=== PATIENT | male | born 1945 | race Caucasian/White ===

== ENCOUNTER 2023-10-31 23:39 | Inpatient (IN) | payer OTHER, SELFPAY ==
[2023-10-31 18:20] VITALS: BMI 28.9
[2023-10-31 18:31] VITALS: BP 112/71
--- NOTE | 2023-10-31 20:29 | ED.GENMED ---
History of Present Illness
General
Chief Complaint: Extremity Pain (non-traumatic)
Source: patient and family
Time Seen by Provider: 10/31/23 20:00
Travel History
Have you had any contact with someone who has COVID-19?: No
Do you have any symptoms of coronavirus? Fever > 100 degrees, chills, cough, shortness of breath, sore throat, loss of taste or smell, muscle aches, or headache?: No
History of Present Illness
History of Present Illness:
This patient is a 78-year-old male who just recently returned from [place], over a period of driving for 2 days. He was quite active while he was in [place]. He states that for the last 3 to 4 days, he notes 'claudication' described as pain
initially just in the right leg and now in both legs with walking more than 20 to 30 feet. His symptoms seem to be worse today which prompted his visit here. He denies leg swelling, chest pain, shortness of breath, abdominal pain, nausea,
vomiting, numbness, recent trauma, or other complaints. Patient has no pain at rest. He has a history of peripheral arterial disease and states that the symptoms are similar to prior when he needed a femoropopliteal bypass.
Past History
Past History
ED Past Medical History: Other (A-fib, hypertension, hyperlipidemia, renal cancer, bladder cancer)
ED Past Surgical History: Other (Kidney removal)
Social History
Tobacco: Non-smoker
Drug: None
Personal:
Living: with family
Phy Exam
Physical Exam
Physical Exam:
GENERAL: Alert , in no apparent distress
EYE: pupils equal and reactive
NECK: Supple, no significant adenopathy.
ENT: o/p clr, mmm.
CARDIAC: Regular rate and rhythm .
LUNGS: Clear breath sounds bilaterally, no acute respiratory distress, no wheezes/rales/rhonchi
ABDOMEN: Soft, without focal tenderness, no r/g, no cvat
NEUROLOGICAL: Alert and oriented, no focal neuro deficits
SKIN: Warm and dry, skin intact.
MUSCULOSKELETAL: No edema, well perfused. Full range of motion, no calf tenderness or swelling noted. No pallor or cyanosis. I am able to get a Doppler signal in the left PT and DP area, right PT area, but unable to appreciate in the right DP
area. Cap refill is normal. Sensation intact, motor 5 out of 5.
PSYCH: Normal and appropriate interaction.
Course
Orders/Labs/Results
Orders:
Orders
10/31/23 18:38
US Legs, Right [US Periph Venous LOWER Ext RT] Urgent
Comment:
Reason For Exam: dvt
10/31/23 20:53
Peripheral Arterial US [US Periph Art LOWER Ext w RODY] Urgent
Comment:
Reason For Exam: hx fem pop, now pain
Vital Signs
Initial and Last Documented VS:
Initial Vital Signs
Temp Pulse Resp BP Pulse Ox
97.8 F 55 20 112/71 100
10/31/23 18:31 10/31/23 18:31 10/31/23 18:31 10/31/23 18:31 10/31/23 18:31
Last Documented Vital Signs
Temp Pulse Resp BP Pulse Ox
98.0 F 78 18 120/81 100
11/01/23 07:15 11/01/23 07:15 11/01/23 07:15 11/01/23 07:15 11/01/23 07:15
*Critical Care Note
Total Time (30-74mins, 75-104mins- exclusive of procedures): Not Applicable
Update Note
Update Note:
Patient presents to the Emergency Department with leg pain____
Number and Complexity of Problems Addressed at the Encounter
� Chronic conditions affecting care:
� Acute Exacerbation and/or Progression of Chronic Illness:
� Differential Diagnosis includes: But not limited to DVT, acute arterial occlusion, progressive peripheral arterial disease, etc.
Amount and/or Complexity of Data to be Reviewed and Analyzed
� I performed an independent evaluation of and my interpretation is:
EKG:
CT:
Xrays:
Laboratory Studies: Pending
Other:US no dvt
� Review of other/old records reveals: Patient had a arterial ultrasound bilaterally August 2023 which was generally insignificant for acute disease
� Clinical information was obtained by an independent historian: Family around bedside including
� Prescriptions/Medications Considered but not given:
� Further testing considered but not performed:
Risk of Complications and/or Morbidity or Mortality of Patient Management
� Social determinants of health affecting care:
� Discussion with other providers (PCP, Hospitalists, Consultants, etc):
� Escalation of care including admission/observation vs risk of discharge considered: Although patient is obviously at risk for acute arterial occlusion given his history of A-fib and peripheral arterial disease, he does not have
sxs to suggest acute distal arterial occlusionon exam here. He does not have pain at rest, feet are warm, without pallor or cyanosis, sensation intact, full range of motion, etc. however, increasing claudication symptoms could suggest partial
occlusion. Case discussed with Dr. PARKER from vascular surgery. We then called in the vascular surgery agricultural research technician who performed the ultrasound and does confirm that the bypass is unfortunately occluded. Given patient does not have rest pain,
motor or sensory complaints, etc., it is not emergent tonight but upon his recommendation patient will be admitted to Dr. PARKER for treatment in the morning. Case discussed with the house HEATER TENDER and I forwarded the text of Dr. Parker's request regarding
plan of care for the overnight and morning time. Patient remains pain-free, and asks if he can go home and come back tomorrow. at bedside, aware of importance of being here overnight for prompt evaluation in the morning and is agreeable to
this.
ED Attending Note
-
Portions of this chart may have been created with voice recognition software.� Occasional wrong word or��sound alike� substitutions may have occurred due to the inherent limitations of voice recognition software.
Discharge Plan
Departure
Patient Disposition: Admit
Date of Disposition: 10/31/23
Time of Disposition: 23:12
Admit to doctor: brittany
Presentation/result/management discussed w/ accepting MD/DO: brittany
Condition: Fair
Discharge Problem:
occluded bypass graft
Interventions
Interventions:
*Risk Screen - Suicide Last Done: 10/31/23 18:31
*General Assessment Last Done: 11/01/23 01:07
*Neglect/Abuse Screening Last Done: 10/31/23 18:31
ED- Fall Risk Assessment Last Done: 10/31/23 20:34
*ED COVID-19 Vaccine History Last Done: 10/31/23 20:34
*Nursing Disposition Last Done: 11/01/23 01:07
ED-Skin Assessment Last Done: 10/31/23 20:29
ED-Peripheral Vascular Assessment Last Done: 10/31/23 20:32
ED-Musculoskeletal Assessment Last Done: 10/31/23 20:29
Discharge Date and Time
Discharge Date/Time: 11/01/23 01:08
[2023-11-01] VITALS (9 sets, daily range): BP systolic 105–139; BP diastolic 77–103; BMI 27.6; BMI 28.4
--- NOTE | 2023-11-01 00:24 | HPS.HSE ---
Family Physician
-
Family Physician: Evy Hoover
Chief Complaint
-
'leg pain R>L'
History of Present Illness
78 y/o patient with PMH of Afib, HTN, Hyperlipidemia, renal cancer, bladder cancer, PAD with federal popliteal bypass sx Right Leg, presents to ER with the c/o B/L leg pain Right greater than left. States 'throbbing' pain started initially in Right
leg on Sunday after 2 days of driving back and forth from [place], now noticing pain with both legs with walking 20 feet. His symptoms has gradually worsened and denies any pain at rest at present. Denies any chest pain, Shortness of breath at
present. Denies chills, fever, nausea, vomiting. Patient is on Eliquis for Afib and took his dose for today.
Medical History
Past Medical History
Past Medical History: Reports Arrhythmia, Cancer, HTN and Hypercholesterolemia
Past Surgical History: Reports Other
Additional Past Surgical History:
Femoropopliteal bypass
cardioversion
Social History
Tobacco: Former Smoker
Alcohol: Former
Drug: None
Personal:
Living: With Family
Family History
Family History: Not pertinent
Allergies / Home Medications
Allergies reflects when Allergies were last updated in [employer].
Home Medications with original date entered in [employer]
Allergy/Medication List:
Allergies
Allergy/AdvReac Type Severity Reaction Status Date / Time
No Known Allergies Allergy Verified 10/31/23 18:37
Home Medications
Magnesium/Calcium/Zinc 1 tab PO Q48H 07/10/13
acetaminophen 500 mg tablet 1,000 mg PO Q6H PRN pain 05/01/22
apixaban 5 mg tablet (Eliquis) 5 mg PO BID 05/01/22
ferrous sulfate 325 mg (65 mg iron) tablet 325 mg PO DAILY 05/01/22
glucosamine sulfate 500 mg tablet (Glucosamine) 500 mg PO DAILY 05/01/22
lansoprazole 15 mg capsule,delayed release 15 mg PO DAILY 05/01/22
metoprolol succinate 50 mg tablet,extended release 24 hr 50 mg PO Q48H 05/01/22
rosuvastatin 5 mg tablet 5 mg PO DAILY 05/01/22
tamsulosin 0.4 mg capsule 0.4 mg PO HS 05/01/22
Review of Systems
-
History Source: Patient
A 12 point ROS was completed and negative except as noted: Yes
Constitutional: Reports No Symptoms
EENT: Reports No Symptoms
Respiratory: Reports No Symptoms
Cardiac: Reports No Symptoms
Abdomen/GI: Reports No Symptoms
: Reports No Symptoms
Musculoskeletal: Reports Other ('cold feet ')
Skin: Reports Other (surgical scars )
Neurological: Reports No Symptoms
Endocrine: Reports No Symptoms
Hematologic/Lymphatic: Reports No Symptoms
Psych: Reports No Symptoms
Physical Exam
Vital Signs
Vital Signs
Temp Pulse Resp BP Pulse Ox
97.8 F 55 20 112/71 100
10/31/23 18:31 10/31/23 18:31 10/31/23 18:31 10/31/23 18:31 10/31/23 18:31
Physical Exam
General: Well Developed and Well Nourished
HEENT: NormoCephalic, Moist mucous membranes and Atraumatic
Respiratory: Clear and Non Labored Respirations
Cardiac: S1/S2 and Regular Rhythm
Breast: Deferred by me
GI: Soft, Non Tender, Non Distended and Normal Bowel Sounds
Rectal: Deferred by Provider
Genito-urinary: Deferred by me
Musculoskeletal: No Clubbing, No Cyanosis, No Edema and Other (cap refill wnl, Right DP pulses neg, cold b/l LE, sensation intact, strength 5/5 )
Skin: Other (Right leg surgical scar ); No Rash
Neuro: Awake, Alert, AO x 3 and Nonfocal/grossly intact
Hematologic/Lymphatic: No Lymphadenopathy
Psych: Calm
Laboratory Results
-
Allergies
Allergy/AdvReac Type Severity Reaction Status Date / Time
No Known Allergies Allergy Verified 10/31/23 18:37
Home Medications
Magnesium/Calcium/Zinc 1 tab PO Q48H 07/10/13
acetaminophen 500 mg tablet 1,000 mg PO Q6H PRN pain 05/01/22
apixaban 5 mg tablet (Eliquis) 5 mg PO BID 05/01/22
ferrous sulfate 325 mg (65 mg iron) tablet 325 mg PO DAILY 05/01/22
glucosamine sulfate 500 mg tablet (Glucosamine) 500 mg PO DAILY 05/01/22
lansoprazole 15 mg capsule,delayed release 15 mg PO DAILY 05/01/22
metoprolol succinate 50 mg tablet,extended release 24 hr 50 mg PO Q48H 05/01/22
rosuvastatin 5 mg tablet 5 mg PO DAILY 05/01/22
tamsulosin 0.4 mg capsule 0.4 mg PO HS 05/01/22
aspirin 81 mg chewable tablet 81 mg PO DAILY #60 tabs 01/01/23
Data Reviewed
-
Ultrasound: Report Reviewed by me
Lab Data: Labs Reviewed by me
Impression/Plan
-
78 y/o with b/l LE pain, R>L
# B/L LE Pain Right > Left Likely due to Occluded Femoral Bypass
-will admit under Vascular Surgery Dr. Parker
-NPO after MN
-Gentle hydration with NSS @ 75cc/hr
-Hold Eliquis
-may start Heparin in AM
-continue Tylenol for pain
-labs in AM
# Essential HTN
-continue Metoprolol
-monitor HR BP
# Paroxysmal AFib
-Hold Eliquis at present
-continue metoprolol PO
-Monitor HR and BP
# Hyperlipidemia
-continue Rosuvastatin
# BPH
-continue Flomax
DVT prophylaxis: Eliquis on Hold
Limited DNR.
[2023-11-01] MEDS: NSS 1000 IV ×2 (02:27→18:41)
[2023-11-01 02:37] LABS: Hematocrit 39.2 % (39.0-52.0); Mean Corp Hgb Conc. 35.7 g/dL (33.0-37.0); Mean Corpuscular Hgb 30.5 pg (27.0-31.0); Mean Corpuscular Volume 85.4 fL (80.0-94.0); Mean Platelet Volume 9.4 fL (7.4-10.4); Platelet Count 226 10^3/uL (130-400); Red Blood Cell Count 4.59 10^6/uL (4.70-6.10); Red Cell Dist. Width 14.6 % (11.5-14.5); White Blood Cell Count 8.4 10^3/uL (4.8-10.8)
[2023-11-01 02:58] LABS: Blood Urea Nitrogen 19 mg/dl (9-20); Carbon Dioxide 26 mmol/L (22-30); Chloride 104 mmol/L (98-107); Estimated Creatinine Clearance 44 ml/min; Glucose 107 mg/dl (70-99); Potassium 4.3 mmol/L (3.5-5.1); Sodium 135 mmol/L (135-145); eGFR 56.58
--- NOTE | 2023-11-01 07:40 | CON.VAS ---
Consultation
Consultation Request
Performing Provider: Keith
Reason for Consultation: RLE bypass occluded
Medical History
-
Chief Complaint: RLE discomfort
History of Present Illness:
78-year-old male known to our service for peripheral arterial disease (followed by Dr. Wallis).� History of bilateral lower extremity bypasses completed at [facility] in the past.� From what patient reports, right-sided bypass was
completed with vein conduit.� At some point subsequently he had occluded the bypass and was seen at [facility] where he underwent thrombectomy and subsequently repeated surgery with stenting of the distal bypass into the outflow popliteal
artery.� In addition underwent extensive fasciotomies.� Subsequently had been seen by Dr. Wallis.� Underwent right lower extremity arteriogram with angioplasty of anterior tibial artery twice for salvage of the bypass graft, as well as for toe
ulceration.� Now presents with 4 days of bilateral right worse than left calf claudication type symptoms with 20 to 30 feet of walking.� He notes that the right calf has had symptoms of claudication for a few months, but not this severe it was much
milder prior.� Denies any rest pain.� Denies tissue loss.
On exam/he is awake and alert.� He is in no acute distress.� Breathing is unlabored.� Lower extremity with 2+ femoral pulses palpable bilaterally.� Left lower extremity with warm well-perfused foot.� Easily dopplerable PT signal with phasic audible
signal.� Right lower extremity foot is slightly cool.� Elevation pallor noted as well.� Motor intact though he has some chronic limitation he notes due to arthritis.� I am unable to Doppler signals in his foot.� Calf is soft and nontender.� Chronic
fasciotomy sites and skin grafting sites healed.
I have reviewed all pertinent imaging including duplex that was completed last evening.� I also have reviewed prior angiograms that were completed here.
Pt scheduled for CLAY tomorrow and afib ablation next week with Dr Mcfarlane. I will reach out to cardiology to collaborate.
Past Medical History
Past Medical History: Arrhythmias (afib), Cancer, HTN and Hypercholesterolemia
Past Surgical History: Other (fem-pop bypass ([facility]), CV)
Social History
Tobacco: Former Smoker
Alcohol: Former
Drug: None
Personal:
Living: With Family
Family History
Family History: Reviewed & Not Pertinent
Allergies / Home Medications
Allergy/AdvReac Type Severity Reaction Status Date / Time
No Known Allergies Allergy Verified 10/31/23 18:37
Medication Instructions Recorded Confirmed Type
Magnesium/Calcium/Zinc 1 tab PO Q48H Supplement 07/10/13 01/01/23 History
acetaminophen 500 mg tablet 1,000 mg PO Q6H PRN pain 05/01/22 01/01/23 History
apixaban 5 mg tablet (Eliquis) 5 mg PO BID Blood Clot 05/01/22 11/01/23 History
Prevention/Tx
ferrous sulfate 325 mg (65 mg 325 mg PO DAILY Supplement 05/01/22 11/01/23 History
iron) tablet
glucosamine sulfate 500 mg tablet 500 mg PO DAILY Supplement 05/01/22 01/01/23 History
(Glucosamine)
lansoprazole 15 mg capsule,delayed 15 mg PO DAILY Gastrointestinal 05/01/22 11/01/23 History
release Issue
metoprolol succinate 50 mg 50 mg PO Q48H Heart Failure 05/01/22 11/01/23 History
tablet,extended release 24 hr
rosuvastatin 5 mg tablet 5 mg PO DAILY High Cholesterol 05/01/22 11/01/23 History
tamsulosin 0.4 mg capsule 0.4 mg PO HS Urinary Issue 05/01/22 11/01/23 History
aspirin 81 mg chewable tablet 81 mg PO DAILY Blood Clot 11/01/23 History
Prevention/Tx
Review of Systems
-
History Source: Patient
All other systems: Negative unless noted
Constitutional: Reports No Symptoms
EENT: Reports No Symptoms
Respiratory: Reports No Symptoms
Cardiac: Reports No Symptoms
Vascular: Reports Numbness
Abdomen/GI: Reports No Symptoms
: Reports No Symptoms
Musculoskeletal: Reports Muscle Pain and Muscle Stiffness
Skin: Reports Other (R toes pale, cool)
Neurological: Reports No Symptoms
Endocrine: Reports No Symptoms
Physical Exam
Vital Signs
Temp Pulse Resp BP Pulse Ox
97.6 F 72 18 137/83 97
11/01/23 03:15 11/01/23 03:15 11/01/23 03:15 11/01/23 03:15 11/01/23 03:15
Lab Results
11/01/23 02:19
11/01/23 02:19
Physical Exam
General: No Apparent Distress
HEENT: Normocephalic and Atraumatic
Respiratory: Non Labored Respirations
Cardiac: Irregular Rhythm
GI: Soft, Non Tender and Non Distended
Musculoskeletal: No Clubbing and No Edema
Skin: Other (Right foot cool, toes pale)
Neuro: Awake, Alert and Oriented
Pulses: Bilateral Femoral: +2, Left Dorsalis Pedis: Doppler (absent), Right Dorsalis Pedis: Doppler (absent), Left Posterior Tibial: Doppler and Right Posterior Tibial: Doppler (absent)
Assessment / Plan
-
Plan/ Right lower extremity occluded bypass graft acute/subacute.� Discussed that based on my review of his angiograms, and the need for a couple interventions in the relatively recent past, I cannot guarantee that we can restore patency of this
bypass graft.� He has a very diseased runoff vessels.� Anterior tibial and peroneal arteries are both patent but both significantly diseased.� Anterior tibial artery is his main runoff vessel to the foot but moderate recurrent disease at the
origin.� Peroneal artery is much more diminutive in nature.� The anterior tibial artery does continue onto the dorsalis pedis artery, but there is disease in the proximal foot portion of the artery.� His very distal posterior tibial artery at the
very distal ankle/foot appears to regain patency on his last angiogram but again gives rise to relatively diseased plantar branches.� Not necessarily the most robust runoff vessel.� In addition, he has limited vein conduit should he need a new
bypass.� Therefore, I discussed with him attempting angiogram today, and possible initiation of catheter directed thrombolysis.� Discussed that may not be able to achieve successfully in which case could see if there is a reasonable target for
bypass, but I cautioned him that based on his prior angiograms that may not be the case.� He understands the risk of potential amputation with or without intervention.� I discussed with him and he has no contraindications to catheter directed
thrombolysis (no history of stroke/intracranial bleeds, no recent GI bleeds, no recent bleeds, no recent major surgeries).� Plan right lower extremity arteriogram today.� Gentle hydration discussed with him as well given that he has solitary
kidney.
Data Reviewed
-
Labs: Labs Reviewed by me
[2023-11-01] MEDS: CRESTOR PO (08:00)
--- NOTE | 2023-11-01 08:04 | W.PN.UPDATE ---
Update Note
Progress Note Update
Seen and examined with FEDERICO Zamorano. Full consultation to follow. Briefly, 78-year-old male known to our service for peripheral arterial disease (followed by Dr. Wallis). History of bilateral lower extremity bypasses completed at [facility] in the past. From what patient reports, right-sided bypass was completed with vein conduit. At some point subsequently he had occluded the bypass and was seen at [facility] where he underwent thrombectomy and subsequently repeated
surgery with stenting of the distal bypass into the outflow popliteal artery. In addition underwent extensive fasciotomies. Subsequently had been seen by Dr. Wallis. Underwent right lower extremity arteriogram with angioplasty of anterior tibial
artery twice for salvage of the bypass graft, as well as for toe ulceration. Now presents with 4 days of bilateral right worse than left calf claudication type symptoms with 20 to 30 feet of walking. He notes that the right calf has had symptoms
of claudication for a few months, but not this severe it was much milder prior. Denies any rest pain. Denies tissue loss.
On exam/he is awake and alert. He is in no acute distress. Breathing is unlabored. Lower extremity with 2+ femoral pulses palpable bilaterally. Left lower extremity with warm well-perfused foot. Easily dopplerable PT signal with phasic audible
signal. Right lower extremity foot is slightly cool. Elevation pallor noted as well. Motor intact though he has some chronic limitation he notes due to arthritis. I am unable to Doppler signals in his foot. Calf is soft and nontender. Chronic
fasciotomy sites and skin grafting sites healed.
I have reviewed all pertinent imaging including duplex that was completed last evening. I also have reviewed prior angiograms that were completed here.
Plan/ Right lower extremity occluded bypass graft acute/subacute. Discussed that based on my review of his angiograms, and the need for a couple interventions in the relatively recent past, I cannot guarantee that we can restore patency of this
bypass graft. He has a very diseased runoff vessels. Anterior tibial and peroneal arteries are both patent but both significantly diseased. Anterior tibial artery is his main runoff vessel to the foot but moderate recurrent disease at the origin.
Peroneal artery is much more diminutive in nature. The anterior tibial artery does continue onto the dorsalis pedis artery, but there is disease in the proximal foot portion of the artery. His very distal posterior tibial artery at the very
distal ankle/foot appears to regain patency on his last angiogram but again gives rise to relatively diseased plantar branches. Not necessarily the most robust runoff vessel. In addition, he has limited vein conduit should he need a new bypass.
Therefore, I discussed with him attempting angiogram today, and possible initiation of catheter directed thrombolysis. Discussed that may not be able to achieve successfully in which case could see if there is a reasonable target for bypass, but I
cautioned him that based on his prior angiograms that may not be the case. He understands the risk of potential amputation with or without intervention. I discussed with him and he has no contraindications to catheter directed thrombolysis (no
history of stroke/intracranial bleeds, no recent GI bleeds, no recent bleeds, no recent major surgeries). Plan right lower extremity arteriogram today. Gentle hydration discussed with him as well given that he has solitary kidney.
--- NOTE | 2023-11-01 15:10 | CM ---
Initial assessment completed with patient and . 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 Currently with
occluded fem bypass. For arteriogram, possible bypass and possible amputation. [facility]acy is [facility] in [place] and PCP is Dr. Evy Hoover. Discharge plan of care to be determined based on care required.
[2023-11-01] MEDS: BACTROBAN 2% OINTMENT 1 APPLIC NASAL (15:32)
[2023-11-01] MEDS: NSS IV (15:33)
[2023-11-01] MEDS: PERIDEX 0.12% ORAL RINSE 15 ML PO (15:33)
--- NOTE | 2023-11-01 16:54 | W.SUR.PREOP ---
Pre-Operative Surgical Note
-
I have examined this patient prior to the performance of the scheduled procedure.
The patient's condition is unchanged from the time of the current History and
Physical and the patient is able to undergo the scheduled procedure.
[2023-11-01] MEDS: ANCEF 10 IV (17:05)
--- NOTE | 2023-11-01 17:41 | W.SUR.POST ---
Surgical Immediate Post Op
Note
Pre Op Diagnosis: Occluded RLE bypass
Post Op Diagnosis: same
Procedure Performed: RLE angiogram, initiation of catheter directed thrombolysis
Primary Surgeon: Keith
Anesthesia: local and sedation
Estimated Blood Loss: <2cc
Fluids: see anesthesia flow sheet
Drains/Shunts: none
Specimens/Cultures: none
Doppler/Duplex/Angio (Y/N): Y
Complications: none
Operative Findings: TPA dwelling
[2023-11-01] MEDS: HEPARIN 25000 UNITS/250 ML ART SHEATH (17:45)
[2023-11-01] MEDS: CATHFLO/ACTIVASE 16 ML INF CATH ×2 (17:45→22:02)
[2023-11-01] MEDS: CATHFLO/ACTIVASE 16 MG INF CATH ×2 (17:45→22:02)
--- NOTE | 2023-11-01 18:19 | OR.RPT ---
Operative Report
Operative Report
PROCEDURE DATE: 11/01/2023
Preoperative diagnosis: Acute limb ischemia right lower extremity, [place] 2A
Postoperative diagnosis: Same
Procedure:
1. Duplex assisted left common femoral artery cannulation.
2. Aortogram and pelvic angiogram.
3. Right lower extremity arteriogram with third order vessel catheterization of right peroneal artery via left common femoral artery puncture.
4. Initiation of catheter directed thrombolysis.
5. Supervision interpretation.
Surgeon: Parker
Master Craftsman: None
Complications: None
Anesthesia: Local, sedation
Fluoroscopy:
13.5 min
52 mGy
14.21 Gy.cm2
Indications for procedure:
Acute thrombosis of right lower extremity bypass graft. Symptoms for 4 days prior to admission. Discussed extensively scenarios, outcomes, alternatives. Patient understood all wish to proceed with right lower extremity arteriogram, possible
catheter directed thrombolysis.
Description of procedure:
Patient was identified, brought to the operating room. Placed on the table in the supine position. After the adequate administration of anesthesia, the patient was prepped and draped in the standard surgical fashion. A standard preoperative
timeout was undertaken and everybody was in agreement with the plan.
The left common femoral artery was accessed with a micropuncture kit under direct duplex ultrasound guidance. A 5 Martiniquais sheath was then advanced over a 0.035 inch wire, and a webster's hook catheter was advanced into the abdominal aorta.
Aortogram and pelvic angiogram was obtained. Findings as follows:
Infrarenal aorta: [Patent with no significant stenosis]
Right common iliac artery: [Patent with no significant stenosis]
Right external iliac artery:[Patent with no significant stenosis]
Left common iliac artery:[Patent with no significant stenosis]
Left external iliac artery:[Patent with no significant stenosis]
Using a floppy angled hydrophilic wire, the right common femoral artery was cannulated and the catheter was advanced. Right lower extremity arteriogram was obtained. Right common femoral artery was patent. Profunda was patent, but appeared to
occlude in its more distal course. The origin of the bypass graft could be visualized but there was no flow beyond there. Imaging throughout the right lower extremity otherwise from injection of contrast through the catheter in the right common
femoral artery did not opacify the distal vessels. At this point I cannulated the profunda femoris artery and then exchanged for a Storq wire via a glide catheter (this proved to be slightly challenging due to the somewhat tighter bifurcation of
the aorta). Once I placed the Storq wire, I exchanged for a 6 Martiniquais up and over sheath. I gave the patient 100 units/kg of heparin. Now with the sheath in the right common femoral artery, under roadmap assisted guidance I tried to cannulate the
bypass graft. This proved very challenging because of the patient's constant movement. In addition, the angle from the common femoral into the bypass graft proved challenging. However, finally was able to gain wire access into it and then
advanced my catheter just into the origin. Once I did this I was finally able to torque my wire such that I was able to gain better wire purchase and then advance my catheter and then was able to pass through once I passed the arterial plug. Next,
I advanced a CXI catheter over the wire when I advanced the wire all the way through the bypass graft and through the distal stent. Initially catheter went into a sidebranch. I was able to pull it back and then navigated into the main popliteal
artery below the knee. Angiogram confirmed I was in the true lumen. I could see filling into the anterior tibial and tibial peroneal trunk/peroneal artery. I now exchanged for a Storq wire and then a 5 Martiniquais x 50 cm infusion length [place]
Alanna infusion catheter. I positioned it under fluoroscopy. I then withdrew the wire. Angiogram confirmed good positioning. I then instilled 2 mg of tPA through the catheter to bolus. I then hooked up a tPA infusion of 1 mg/h through the
catheter, and 500 units/h of heparin through the sheath. Sheath and catheter were all secured. Dressings were applied.
The patient tolerated procedure well.
--- NOTE | 2023-11-01 18:31 | CON.INTV ---
Consultation
Consultation Request
Date/Time Consultation Requested: 11-01-23
Date/Time Consultation Performed: 11-01-23
Requesting Provider: Dr Parker
Performing Provider: Dr Champion
Reason for Consultation: RLE thrombolysis
Medical History
-
Chief Complaint: RLE pain
History of Present Illness:
Mr Daniel Morales is a 78/M adm 11-01 with bilateral ODILON pain (R>L) for 4 d.
Known h/o PAD with bilateral ODILON bypass at OSH, then thrombectomy and then repeat surgery in another institution with stenting of distal bypass.
Transferred care to , received balloon angioplasty of R proximal anterior tibial artery stenosis in December 2022.
Seen in consultation by Dr Parker, difficult vascular disease to intervene on but candidate for thrombolysis of RLE occluded bypass graft.
Past Medical History
Past Medical History: Other (see A&P for PMH/PSH)
Social History
Tobacco: Former Smoker
Alcohol: Former
Drug: None
Personal:
Living: With Family
Family History
Family History: Reviewed & Not Pertinent
Allergies / Home Medications
Allergies
Allergy/AdvReac Type Severity Reaction Status Date / Time
No Known Allergies Allergy Verified 10/31/23 18:37
Home Medications
Medication Instructions Recorded Confirmed Last Taken Type
Magnesium/Calcium/Zinc 1 tab PO Q48H Supplement 07/10/13 01/01/23 12/30/22 09:30 History
acetaminophen 500 mg tablet 1,000 mg PO Q6H PRN pain 05/01/22 01/01/23 12/28/22 19:00 History
apixaban 5 mg tablet (Eliquis) 5 mg PO BID Blood Clot 05/01/22 11/01/23 10/31/23 History
Prevention/Tx
ferrous sulfate 325 mg (65 mg 325 mg PO DAILY Supplement 05/01/22 11/01/23 10/31/23 History
iron) tablet
glucosamine sulfate 500 mg tablet 500 mg PO DAILY Supplement 05/01/22 01/01/23 12/31/22 09:30 History
(Glucosamine)
lansoprazole 15 mg capsule,delayed 15 mg PO DAILY Gastrointestinal 05/01/22 11/01/23 10/24/23 History
release Issue
metoprolol succinate 50 mg 50 mg PO Q48H Heart Failure 05/01/22 11/01/23 10/31/23 History
tablet,extended release 24 hr
rosuvastatin 5 mg tablet 5 mg PO DAILY High Cholesterol 05/01/22 11/01/23 10/31/23 History
tamsulosin 0.4 mg capsule 0.4 mg PO HS Urinary Issue 05/01/22 11/01/23 10/31/23 History
aspirin 81 mg chewable tablet 81 mg PO DAILY Blood Clot 11/01/23 Unknown History
Prevention/Tx
Review of Systems
-
History Source: Patient
All other systems: Negative unless noted
Musculoskeletal: Other (RLE pain, improving after thrombolysis)
Vitals / Labs / Diagnostic Testing
Vital Signs
Temp Pulse Resp BP Pulse Ox
97.3 F 85 18 139/93 98
11/01/23 15:10 11/01/23 15:10 11/01/23 15:10 11/01/23 15:10 11/01/23 15:10
Diagnostic Testing:
Physical Exam
-
HEENT: Normocephalic and Moist Mucous Membranes
Cardiovascular: Regular Rhythm, Murmur (n) and Peripheral Edema
Respiratory: Clear and Non-Labored Respirations
GI: Soft, Non Distended and Non Tender
Neurology: Awake, AO x 3 and No Motor Deficits
Skin: Dry
General: Respiratory Distress (n)
Assessment
-
Assessment:
Mr Daniel Morales is a 78/M adm 11-01 with bilateral ODILON pain (R>L) for 4 d. Known h/o PAD with bilateral ODILON bypass at OSH, then thrombectomy and then repeat surgery in another institution with stenting of distal bypass. Transferred care to ,
received balloon angioplasty of R proximal anterior tibial artery stenosis in December 2022. Seen in consultation by Dr Parker, difficult vascular disease to intervene on but candidate for thrombolysis of RLE occluded bypass graft.
Impression:
Acute limb ischemia RLE
S/p angiogram and catheter directed thrombolysis 11-01-23
Conditions PERL PROGRAMMER:
PAD: RLE bypass 2020
AFib on apixabn
Prostate cancer, TURP, XRT 2012
R ureteral/renal carcinoma s/p resection
GERD
HTN
HLD
Former Smoker
Plan:
Postoperative surgical intensive care unit monitoring
Supplemental oxygen as needed
Incentive spirometry
Aspiration precautions
Neuro and vascular checks per protocol
Vascular surgery following-correspondence and operative notes reviewed
DVT prophylaxis
Early nutrition
Early mobilization
Critical care time: 35 min
Diagnostic tests:
RLE doppler 10-31-23: no DVT
[2023-11-01] MEDS: NSS 1000 INF CATH (18:37)
--- NOTE | 2023-11-01 18:45 | PTCARENOTE ---
Rec'd pt from laboratory development technician. Pt rec'd A&Ox3. Pleasant. Denies any pain at present. Strict bedrest w/ bilateral legs straight per MD order. Afib on monitor. On R/A...sats 100%. Wallis draining yellow urine. Left groin w/ arterial sheath....heparin,
tpa, and IVF's infusing...line transduced. Left DP and PT by doppler. Unable to obtain (R) DP and PT by doppler....MD aware. 20P LAC w/ NSS infusing @ 80ml/hr. Clear liquid diet ordered. VS documented. Reviewed plan of care w/ pt and limb
restrictions. Call cooper provided. Will continue to monitor closely.
[2023-11-01 19:35] LABS: Hepatitis C Antibody Negative (Negative)
--- NOTE | 2023-11-01 20:36 | PTCARENOTE ---
received patient from previous shift. alert and orientated x3. pt requesting bilateral ankle restraints on for the night as a reminder to keep his legs straight. order received and restraints in place. neurovascular checks done with dayshift nurse.
pt on room air. a-fib on the monitor. a-line zeroed and transduced. blood specimen sent to the lab. tolerating a clear liquid diet. reardon in place, draining clear yellow urine. tpa and heparin infusing through left leg as ordered. HOB remains flat.
[2023-11-01 20:54] LABS: Hematocrit 39.5 % (39.0-52.0); Hemoglobin 13.9 g/dL (13.0-18.0); Platelet Count 204 10^3/uL (130-400)
[2023-11-01 21:05] LABS: INR 1.31; PT 16.3 Sec (11.4-14.6)
[2023-11-01 21:06] LABS: Fibrinogen 313 MG/DL (199-459)
[2023-11-01 21:22] LABS: Blood Urea Nitrogen 16 mg/dl (9-20); Calcium 8.5 mg/dl (8.4-10.2); Carbon Dioxide 18 mmol/L (22-30); Estimated Creatinine Clearance 58 ml/min; Glucose 136 mg/dl (70-99); eGFR > 60.00
[2023-11-01 21:29] LABS: APTT > 200 Sec (23.4-35.0)
[2023-11-01] MEDS: FLOMAX 0.400000000000000022 MG PO (21:46)
[2023-11-01 22:00] LABS: Chloride 104 mmol/L (98-107); Sodium 134 mmol/L (135-145)
[2023-11-01] MEDS: TYLENOL 650 MG PO (23:24)
[2023-11-01] MEDS: NORCO 5/325 1 TABLET PO (23:36)
[2023-11-01] MEDS: ANCEF 5 IV (23:36)
--- NOTE | 2023-11-01 23:46 | PTCARENOTE ---
pt reassessed, having pain in his right foot. oxy ordered but pt refused said that stuff makes him 'squirrely' pt wanted Vicodin instead. RESEARCH PROGRAM INTERN ordered and given. pt said he immediately feels better. left foot remains cool to the touch, DP's with
doppler. unable to find PT's yet.
[2023-11-01 23:54] LABS: Hematocrit 36.8 % (39.0-52.0); Hemoglobin 13.1 g/dL (13.0-18.0); Platelet Count 189 10^3/uL (130-400)
[2023-11-01 23:59] LABS: PT 16.3 Sec (11.4-14.6)
[2023-11-02] VITALS (12 sets, daily range): BP systolic 99–164; BP diastolic 63–143; BMI 29.3
[2023-11-02] LABS: Fibrinogen 333 MG/DL (199-459)
[2023-11-02 00:20] LABS: APTT > 200 Sec (23.4-35.0)
[2023-11-02] MEDS: MORPHINE SULFATE 4 MG IV (01:43)
[2023-11-02] MEDS: CATHFLO/ACTIVASE 16 ML INF CATH ×2 (01:43→09:09)
[2023-11-02] MEDS: CATHFLO/ACTIVASE 16 MG INF CATH ×2 (01:43→09:09)
--- NOTE | 2023-11-02 01:55 | PTCARENOTE ---
lost doppler signals in right foot between 12am-1am. Dr.Eisenberg gamboa texted and updated increase tpa to 1.5mg/6ml and morphine given for pain.
[2023-11-02] MEDS: DILAUDID 1 MG IV ×4 (02:48→22:51)
[2023-11-02 04:25] LABS: Hematocrit 38.4 % (39.0-52.0); Hemoglobin 13.1 g/dL (13.0-18.0); Mean Corp Hgb Conc. 34.1 g/dL (33.0-37.0); Mean Corpuscular Hgb 30.2 pg (27.0-31.0); Mean Corpuscular Volume 88.5 fL (80.0-94.0); Mean Platelet Volume 9.5 fL (7.4-10.4); Platelet Count 145 10^3/uL (130-400); Red Blood Cell Count 4.34 10^6/uL (4.70-6.10); Red Cell Dist. Width 14.4 % (11.5-14.5); White Blood Cell Count 7.9 10^3/uL (4.8-10.8)
[2023-11-02 04:36] LABS: INR 1.64; PT 19.6 Sec (11.4-14.6)
[2023-11-02 04:37] LABS: Fibrinogen 179 MG/DL (199-459)
[2023-11-02 04:53] LABS: Blood Urea Nitrogen 16 mg/dl (9-20); Calcium 8.2 mg/dl (8.4-10.2); Carbon Dioxide 20 mmol/L (22-30); Chloride 105 mmol/L (98-107); Estimated Creatinine Clearance 58 ml/min; Glucose 102 mg/dl (70-99); Potassium 4.1 mmol/L (3.5-5.1); Sodium 133 mmol/L (135-145); eGFR > 60.00
[2023-11-02 04:54] LABS: APTT > 200 Sec (23.4-35.0)
[2023-11-02] MEDS: NSS 1000 IV ×2 (06:06→17:47)
--- NOTE | 2023-11-02 07:23 | PTCARENOTE ---
Clarified with previous RN, [address] Jacobson increase tPa to 1.5mg/hr for 2 hours then return to 1 mg/hr
--- NOTE | 2023-11-02 07:28 | PTCARENOTE ---
tPa rate adjusted 0.5 mg/hr with NS @ 23 mg/hr, per Anushka Byrnes and Maggie BROWN
[2023-11-02] MEDS: ANCEF 5 IV (07:59)
[2023-11-02] MEDS: TOPROL XL 50 MG PO (08:00)
[2023-11-02] MEDS: LOW STRENGTH ASPIRIN 81 MG PO (08:01)
[2023-11-02] MEDS: PROTONIX 20 MG PO (08:01)
[2023-11-02] MEDS: CRESTOR 5 MG PO (08:01)
--- NOTE | 2023-11-02 08:42 | PTCARENOTE ---
PT received in bed AAOx3, pleasant and cooperative, PT remains flat as per order, B/L LE restrained as reminder to bed, pulses +Doppler, right LE cool, greater than >2 sec cap refill, +Doppler, room air 94%, abdomen soft NT +BS, Wallis draining clear
yellow urine, left AC INT flushed patent, NSS @ 80 ml/hr, left femoral sheath in place dressing C/D/I, tPa @ 2 mg/hr, NSS @ 23 ml/hr, heparin @ 500 units /hr, emotional support given to PT, denies any needs at this time, awaiting call to return to
Vascular lab
--- NOTE | 2023-11-02 08:45 | W.PN.VS ---
Today's Communication / Plan
-
Seen and assessed with Dr Wallis
Assessment/Plan
-
POD 1 RLE angiogram, initiation of catheter directed thrombolysis
Plan:
-Cont TPA
-Return to OR today for lysis catheter check
-NPO
Subjective Data
-
Date of Service: November 02, 2023
Pt seen at bedside this am. Pt had some lower leg 'throbbing' overnight that has resovled. TPA was increased to 1.5 for two hours then changed back to 1mg. This am his Fibrinogen dropped so we changed TPA rate to 0.5mg now.
Objective Data
-
Vital Signs
Temp Pulse Resp BP Pulse Ox
98.1 F 102 11 132/75 96
11/02/23 04:01 11/02/23 08:30 11/02/23 08:15 11/02/23 08:08 11/01/23 21:45
Intake and Output
11/01/23 11/02/23 11/03/23
06:59 06:59 06:59
Intake Total 1760 / 1 940 / 940
Output Total 325 / 325 650 / 650
Balance -325 / -325 1111 / 1941 940 / 940
Intake:
IV fluids (Total) 1760 / 2590 940 / 940
HEPARIN 98844 UNITS/250 ML 25, 65 / 70 10 / 10
000 units In 250 ml @ 500 UNITS
/HR 5 mls/hr ART SHEATH .Q24H
AZALEA Rx#:[id number]
Nss 1,000 ml @ 23 mls/hr INF 598 / 621 46 / 46
CATH .Q24H AZALEA Rx#:[id number]
Nss 1,000 ml @ 80 mls/hr IV . 1040 / 1840 880 / 880
[id number] AZALEA Rx#:[id number]
TPA via sheath 58 / 60 4 / 4
Output:
Urine, Wallis 650 / 650
Urine, Voided 325 / 325
Lab Results
11/02/23 04:07
Calcium 8.2 mg/dl (8.4-10.2) L 11/02/23 04:07
Physical Exam
-
AAOx3
No tachypnea
No tachycardia
Abd soft
RLE toes slightly dusky, denies pain, sensory intact- fleating AT doppler
LLE warm, pink, +doppler PT
--- NOTE | 2023-11-02 08:47 | W.PN.INTV ---
Today's Communication / Plan
Recommendations
tPA
Pain mgmt
OR
Assessment
-
Assessment:
Mr Daniel Morales is a 78/M adm 11-01 with bilateral ODILON pain (R>L) for 4 d. Known h/o PAD with bilateral ODILON bypass at OSH, then thrombectomy and then repeat surgery in another institution with stenting of distal bypass. Transferred care to ,
received balloon angioplasty of R proximal anterior tibial artery stenosis in December 2022. Seen in consultation by Dr Parker, difficult vascular disease to intervene on but candidate for thrombolysis of RLE occluded bypass graft.
Impression:
Acute limb ischemia RLE
S/p angiogram and catheter directed thrombolysis 11-01-23
Conditions OPERATIONS SUPERVISOR:
PAD: RLE bypass 2020
AFib on apixabn
Prostate cancer, TURP, XRT 2012
R ureteral/renal carcinoma s/p resection
GERD
HTN
HLD
Former Smoker
Plan:
Postoperative surgical intensive care unit monitoring
Supplemental oxygen as needed
Incentive spirometry
Aspiration precautions
Neuro and vascular checks per protocol
Vascular surgery following-correspondence and operative notes reviewed
Continue tPA infusion
To return to the OR today for lysis catheter check
Pain mgmt
Reports h/o suicidal thoughts with use of oxycodone
Hydromorphine IV per pain scale
DVT prophylaxis: currently on tPA
Early nutrition
Early mobilization
Critical care time: 35 min
Diagnostic tests:
RLE doppler 10-31-23: no DVT
Subjective Dataa
Subjective Data
Date of Service:
Date of Service: November 02, 2023
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
Subjective:
Events noted, required increase of tPA infusion due to ongoing right lower extremity pain
Due to return to the OR today
Review of Systems
General: Fever (n), Sweats (n), Chills (n) and Satisfactory Appetite (n)
HEENT: Dysphagia
Cardiopulmonary: Dyspnea (n), Cough (n), Chest Pain and Lower Extremity Pain (R)
GI: Abdominal Pain (n), Nausea (n) and Vomiting (n)
Neuro: Weakness (n)
Objective Data
Data Reviewed
Vital Signs / I&O / Oxygen:
Vital Signs
Temp Pulse Resp BP Pulse Ox
98.1 F 102 11 132/75 96
11/02/23 04:01 11/02/23 08:30 11/02/23 08:15 11/02/23 08:08 11/01/23 21:45
Intake and Output
11/01/23 11/02/23 11/03/23
06:59 06:59 06:59
Intake Total 1761 / 2591 940 / 940
Output Total 325 / 325 650 / 650
Balance -325 / -325 1111 / 1941 940 / 940
SaO2 96
Physical Exam
General: Respiratory Distress (n)
HEENT: Normocephalic and Moist Mucous Membranes
Cardiovascular: Regular Rhythm, Murmur (n) and Peripheral Edema (n)
Respiratory: Clear, Non-Labored Respirations and Stridor (n)
GI: Soft, Non Distended and Non Tender
Neurology: Awake, AO x 3 and No Motor Deficits
Skin: Dry
Labs/Micro/Reports
Lab Data
11/02/23 04:07
Laboratory Results
11/01/23 11/01/23 11/02/23
20:48 23:43 04:07
PT 16.3 H 16.3 H 19.6 H
INR 1.31 1.30 1.64
APTT > 200 H* > 200 H* > 200 H*
[2023-11-02] MEDS: CATHFLO/ACTIVASE INF CATH ×2 (09:12)
[2023-11-02 10:35] LABS: Hemoglobin 12.9 g/dL (13.0-18.0); Platelet Count 154 10^3/uL (130-400)
--- NOTE | 2023-11-02 11:05 | PTCARENOTE ---
report given to Zora TA in Vascular lab, PT resting comfortably at this time, waiting for call from vascular lab
[2023-11-02 11:10] LABS: INR 1.43; PT 17.2 Sec (11.4-14.6)
[2023-11-02 11:11] LABS: Fibrinogen 170 MG/DL (199-459)
[2023-11-02] MEDS: DILAUDID 0.5 MG IV ×2 (12:14→16:42)
[2023-11-02 14:33] LABS: Hematocrit 38.1 % (39.0-52.0); Hemoglobin 12.7 g/dL (13.0-18.0); Mean Corp Hgb Conc. 33.3 g/dL (33.0-37.0); Mean Corpuscular Hgb 29.9 pg (27.0-31.0); Mean Corpuscular Volume 89.6 fL (80.0-94.0); Mean Platelet Volume 9.6 fL (7.4-10.4); Platelet Count 145 10^3/uL (130-400); Red Blood Cell Count 4.25 10^6/uL (4.70-6.10); Red Cell Dist. Width 14.6 % (11.5-14.5); White Blood Cell Count 7.8 10^3/uL (4.8-10.8)
[2023-11-02 14:44] LABS: INR 1.57; PT 18.6 Sec (11.4-14.6)
[2023-11-02] MEDS: DILAUDID 4 MG PO ×2 (14:54→21:17)
[2023-11-02 14:57] LABS: APTT > 200.0 Sec (23.4-35.0)
--- NOTE | 2023-11-02 15:07 | CM ---
CM following re: discharge planning.
Discussed in rounds, reviewed pt's chart. POD 1 RLE angiogram, initiation of catheter directed thrombolysis, return to OR today for lysis catheter check, remains NPO.
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
D/C plan: home with anticipated no needs. family to transport at discharge.
CM will follow with discharge plan updates as hospitalization progresses
[2023-11-02 15:13] LABS: Blood Urea Nitrogen 14 mg/dl (9-20); Carbon Dioxide 23 mmol/L (22-30); Chloride 103 mmol/L (98-107); Estimated Creatinine Clearance 53 ml/min; Glucose 109 mg/dl (70-99); Potassium 4.6 mmol/L (3.5-5.1); Sodium 133 mmol/L (135-145); eGFR > 60.00
--- NOTE | 2023-11-02 15:13 | PTCARENOTE ---
PT returns from vascular lab, Arterial and venous sheaths removed, internal closure device, 2x2 C/D/I, PT drowsy but arousable, understand s that he must lay flat for 2 hours and bedrest for 6 hours, samantha mccormack applied as ordered
--- NOTE | 2023-11-02 15:17 | OR.RPT ---
Operative Report
Operative Report
Date of Operation: November 02, 2023
Pre Op Diagnosis: Acute limb ischemia with thrombosed right lower extremity bypass, status post initiation of arterial thrombolysis 11/01/2023
Post Op Diagnosis: Acute limb ischemia with thrombosed right lower extremity bypass, status post initiation of arterial thrombolysis 11/01/2023
Procedure:
1.) Right lower extremity arteriogram, lysis check
2.) Placement of Viabahn stent grafts into proximal right lower extremity bypass for residual thrombus exclusion (overlapping 6 mm x 15 cm Viabahn; 6 mm x 5 cm Viabahn)
3.) Penumbra suction thrombectomy of residual thrombus in the proximal portion of the right lower extremity bypass
4.) ProGlide closure device left common femoral artery access
Surgeon: Rodney Wallis III, MD
Design Checker: Ifeanyi Paz MD PGY-1
Anesthesia: Sedation with local
Fluoroscopy:
16.9 min
329 mGy
40.31 Gy.cm2
Complications: None
Estimated Blood Loss: 10 cc
History and Indications for Procedure: 78-year-old male with thrombosed right lower extremity bypass status post initiation of arterial thrombolysis on 11/01/2023. He was brought back to the operating room for a lysis check.
Procedure in Detail: Daniel Morales was correctly identified and placed supine on the operating table. After positioning on the operating room table the tPA infusion and heparin infusion were disconnected from the catheter and sheath,
respectively. After adequate induction of anesthesia the left groin along with the existing sheath and catheters were prepped and draped in the usual sterile fashion. A timeout was performed with the nursing and anesthesia staff confirming the
patient's identity as well as the nature and laterality of the procedure.
Through the lysis catheter a diagnostic right lower extremity arteriogram was then performed which demonstrated the following:
The bypass was patent. Residual thrombus was identified in the proximal aspect of the bypass graft leading to areas of stenosis. The proximal anastomosis was widely patent. The right common femoral artery was patent. There was significant
disease distally within the profunda femoral artery with distal branch occlusive disease identified. The mid and distal portions of the bypass graft were widely patent. The stent in the distal portion of the bypass was widely patent. The [place]
popliteal artery runoff was patent with no stenosis identified. Tibial outflow was via the anterior tibial artery and peroneal artery. The posterior tibial artery was occluded.
ENDOVASCULAR INTERVENTION:
Systemic heparin was administered. The lysis catheter was removed over a Storq wire. Exchanged out for a 7 Fr 45 cm sheath over a Storq wire. Exchanged out for a 0.018 wire. Overlapping Viabahn stent grafts were placed in the proximal aspect of
the bypass graft to exclude the residual thrombus. This was done under roadmap guidance. The initial stent was a 6 mm x 15 cm Viabahn. A 6 mm x 5 cm Viabahn was slightly overlapped with this and extended to the proximal portion of the bypass.
Each stent was deployed individually in the desired location. The stents were profiled with a 6 mm angioplasty balloon. Subsequent arteriogram demonstrated a significantly improved result but there was residual focal luminal thrombus in the
proximal aspect of the stented portion of the bypass. No other filling defects were identified. I then quickly exchanged out for a 0.014 wire. The 7 Swiss Penumbra catheter was prepped on the table. The catheter was advanced into the desired
location under roadmap guidance. Suction thrombectomy with the Penumbra catheter was performed on the focal area of thrombus in the proximal bypass. Subsequent arteriogram demonstrated an excellent technical result with no residual thrombus or
filling defects identified in the treated area.
COMPLETION ARTERIOGRAM:
Excellent technical result. Brisk flow through the right lower extremity bypass which was widely patent and no evidence of residual filling defects or stenoses. Stents widely patent throughout. [place] popliteal artery patent. Tibial outflow was
identified through the anterior tibial and peroneal arteries. Flow was identified into the foot through the anterior tibial artery.
The sheath tip was pulled back into the left external iliac artery. The wire was exchanged out for a Storq wire. The sheath was removed and a Pro-glide closure device was advanced over the wire. The closure device was deployed and removed. The
knots were secured and the wire removed. Hemostasis was achieved. Sterile dressing was applied.
The patient tolerated the procedure well and was taken to the recovery area in stable condition.
Attestation: I was present and responsible for the entire procedure.
Signed:
Rodney Wallis III, MD
[facility] Vascular Surgery
[phone] (cell)
[2023-11-02] MEDS: HEPARIN 25000 UNITS/250 ML IV (15:52)
--- NOTE | 2023-11-02 17:21 | PTCARENOTE ---
Assessment remains unchanged, samantha hugger remains on, pulses + Doppler DP and PT, PT now allowed to sit up in bed, Heparin continues @ 1300 units /hr
--- NOTE | 2023-11-02 18:26 | PTCARENOTE ---
Left groin dressing saturated with blood, reinforced dressing and applied 5 mins of pressure, applied new Tegaderm, no signs of a hematoma noted,area soft no swelling noted, notified Anushka BROWN, orders received to draw a stat PTT, if >200
notify Vascular surgery mechatronics technician, lab sent awaiting results, also notified DR Champion regarding pain medications, received verbal order for Dilaudid 1 mg IV Q4
[2023-11-02 18:40] LABS: APTT > 200 Sec (23.4-35.0)
[2023-11-02 20:47] LABS: APTT 71.7 Sec (23.4-35.0)
[2023-11-02] MEDS: FLOMAX 0.400000000000000022 MG PO (21:17)
--- NOTE | 2023-11-02 22:12 | PTCARENOTE ---
received from previous shift. alert and orientated x3 pleasant, just wants to go to sleep. pain medication given for 8/10 right foot pain. doppler pulses done with previous shift. Nicko mccormack on right lower leg. remains on room air. spoke with
vascular doc Eliezer after PTT resulted back, resumed at 1100units as ordered.
[2023-11-03] VITALS (9 sets, daily range): BP systolic 102–123; BP diastolic 79–93; BMI 29.6
[2023-11-03] MEDS: TUMS 1 TABLET PO (01:14)
[2023-11-03 03:52] LABS: Hematocrit 33.5 % (39.0-52.0); Hemoglobin 11.8 g/dL (13.0-18.0); Mean Corp Hgb Conc. 35.2 g/dL (33.0-37.0); Mean Corpuscular Hgb 30.9 pg (27.0-31.0); Mean Corpuscular Volume 87.7 fL (80.0-94.0); Mean Platelet Volume 9.7 fL (7.4-10.4); Platelet Count 118 10^3/uL (130-400); Red Blood Cell Count 3.82 10^6/uL (4.70-6.10); Red Cell Dist. Width 14.5 % (11.5-14.5); White Blood Cell Count 7.7 10^3/uL (4.8-10.8)
[2023-11-03 04:10] LABS: INR 1.27; PT 15.8 Sec (11.4-14.6)
[2023-11-03 04:12] LABS: APTT 117.7 Sec (23.4-35.0)
[2023-11-03 04:17] LABS: Blood Urea Nitrogen 15 mg/dl (9-20); Calcium 7.8 mg/dl (8.4-10.2); Carbon Dioxide 24 mmol/L (22-30); Chloride 106 mmol/L (98-107); Estimated Creatinine Clearance 58 ml/min; Glucose 112 mg/dl (70-99); Potassium 4.6 mmol/L (3.5-5.1); Sodium 132 mmol/L (135-145); eGFR > 60.00
[2023-11-03] MEDS: DILAUDID 4 MG PO (04:56)
--- NOTE | 2023-11-03 07:30 | W.[place]-PDMP ---
[place]-PDMP
-
Checked the [place]- Prescription Drug Monitoring Program website, no red flags identified; safe to proceed with prescription.
--- NOTE | 2023-11-03 07:37 | W.PN.VS ---
Addendum entered and electronically signed by Delfina Lopez MD 11/03/23 09:29:
Complaining of some residual foot pain but improving. Dismayed his breakfast is not here yet.
NAD
Foot warm, +biphasic PT and DP signals
Access site c/d/i
Ok to d/c home today after urinates
Transitioned to Eliquis
Original Note:
Today's Communication / Plan
-
Discussed with Dr Ivan
Assessment/Plan
-
POD 2 RLE angiogram, initiation of catheter directed thrombolysis
POD 1 RLE lysis catheter removal, penumbra, stents placed in bypass
Plan:
-Diet
-OOB/ambulate
-DC heparin, restart home Eliquis
-Take tylenol for pain control
-DC reardon
-likely DC later today if voids and ambulates without issue
Subjective Data
-
Date of Service: November 03, 2023
Pt seen at bedside this am. Pt states his foot is a bit uncomfortable but feels to be his baseline discomfort. No events overnight. Heparin infusing
Objective Data
-
Vital Signs
Temp Pulse Resp BP Pulse Ox
98.1 F 79 13 121/83 95
11/03/23 07:25 11/03/23 06:00 11/03/23 06:00 11/03/23 06:00 11/02/23 21:41
Intake and Output
11/02/23 11/03/23 11/04/23
06:59 06:59 06:59
Intake Total 176 / 2591 2645 / 2645
Output Total 650 / 650 1700 / 1700
Balance 1111 / 1941 945 / 945
Intake:
Oral fluids 120 / 120
IV fluids (Total) 176 / 2591 2525 / 2525
HEPARIN 68909 UNITS/250 ML 25, 65 / 70 25 / 25
000 units In 250 ml @ 500 UNITS
/HR 5 mls/hr ART SHEATH .Q24H
AZALEA Rx#:[id number]
Heparin 135 / 135
Nss 1,000 ml @ 23 mls/hr INF 598 / 621 115 / 115
CATH .Q24H AZALEA Rx#:[id number]
Nss 1,000 ml @ 80 mls/hr IV . 1040 / 1840 2240 / 2240
[id number] AAZLEA Rx#:[id number]
TPA via sheath 58 / 60 10 10
Output:
Urine, Reardon 650 / 650 1050 / 1050
Urine, Voided 650 / 650
Lab Results
11/03/23 03:45
11/03/23 03:45
Calcium 7.8 mg/dl (8.4-10.2) L 11/03/23 03:45
Physical Exam
-
AAOx3
No tachypnea
No tachycardia
Abd soft
Groin site c/d/i, no hematoma or drainage noted
R foot warm, pink. Robust AT doppler signal
LLE warm, pink, +doppler PT
--- NOTE | 2023-11-03 07:46 | W.DS.TRANS ---
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
-
Discharge Instructions:
Sleep Apnea Risk High
Discharge Diagnosis/Procedures Placement of Viabahn stent grafts into proximal
right lower extremity bypass for residual
thrombus exclusion (overlapping 6 mm x 15 cm
Viabahn; 6 mm x 5 cm Viabahn)
Penumbra suction thrombectomy of residual
thrombus in the proximal portion of the right
lower extremity bypass
ProGlide closure device left common femoral
artery access
Diet As tolerated
Activity No strenuous activity
Driving Restrictions No driving for 24 hours
Bathing Restrictions OK to Shower
Instructions:
Stand-Alone Forms: DC Instr - Vascular OR
Changes to Home Medications: Yes
Discharge Medications:
DC Medications w/original date entered in [employer]
Magnesium/Calcium/Zinc 1 tab PO Q48H Supplement 07/10/13
acetaminophen 500 mg tablet 1,000 mg PO Q6H PRN pain 05/01/22
apixaban 5 mg tablet (Eliquis) 5 mg PO BID Blood Clot Prevention/Tx 05/01/22
ferrous sulfate 325 mg (65 mg iron) tablet 325 mg PO DAILY Supplement 05/01/22
glucosamine sulfate 500 mg tablet (Glucosamine) 500 mg PO DAILY Supplement 05/01/22
lansoprazole 15 mg capsule,delayed release 15 mg PO DAILY Gastrointestinal Issue 05/01/22
metoprolol succinate 50 mg tablet,extended release 24 hr 50 mg PO Q48H Heart Failure 05/01/22
rosuvastatin 5 mg tablet 5 mg PO DAILY High Cholesterol 05/01/22
tamsulosin 0.4 mg capsule 0.4 mg PO HS Urinary Issue 05/01/22
aspirin 81 mg chewable tablet 81 mg PO DAILY Blood Clot Prevention/Tx 11/01/23
hydromorphone 4 mg tablet 4 mg PO Q4HPRN PRN SEVERE PAIN #7 tabs 11/03/23
Home Medication Changes
Added: hydromorphone for pain control
Pending Results: No
--- NOTE | 2023-11-03 08:31 | W.PN.INTV ---
Today's Communication / Plan
Recommendations
Dispo
Assessment
-
Assessment:
Mr Daniel Morales is a 78/M adm 11-01 with bilateral ODILON pain (R>L) for 4 d. Known h/o PAD with bilateral ODILON bypass at OSH, then thrombectomy and then repeat surgery in another institution with stenting of distal bypass. Transferred care to ,
received balloon angioplasty of R proximal anterior tibial artery stenosis in December 2022. Seen in consultation by Dr Parker, difficult vascular disease to intervene on but candidate for thrombolysis of RLE occluded bypass graft.
Impression:
Acute limb ischemia RLE
S/p angiogram and catheter directed thrombolysis 11-01-23
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
PAD: RLE bypass 2020
AFib on apixabn
Prostate cancer, TURP, XRT 2012
R ureteral/renal carcinoma s/p resection
GERD
HTN
HLD
Former Smoker
Plan:
Postoperative surgical intensive care unit monitoring completed
Supplemental oxygen as needed
Incentive spirometry
Aspiration precautions
Neuro and vascular checks per protocol
Vascular surgery following-correspondence and operative notes reviewed
S/p tPA infusion
Returned to the OR 11-02 for lysis catheter check
Pain mgmt
Reports h/o suicidal thoughts with use of oxycodone
Hydromorphine IV per pain scale
DVT prophylaxis: currently on tPA
Early nutrition
Early mobilization
Disposition today
Reconsult prn
Diagnostic tests:
RLE doppler 10-31-23: no DVT
Subjective Dataa
Subjective Data
Date of Service:
Date of Service: November 03, 2023
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
Subjective:
No major events reported
Foot pain improving
Review of Systems
General: Fever (n), Sweats (n), Chills (n) and Satisfactory Appetite
Cardiopulmonary: Dyspnea (n), Cough (n) and Edema (n)
GI: Abdominal Pain (n), Nausea (n) and Vomiting (n)
Neuro: Weakness (n)
Objective Data
Data Reviewed
Vital Signs / I&O / Oxygen:
Vital Signs
Temp Pulse Resp BP Pulse Ox
98.1 F 79 13 121/83 95
11/03/23 07:25 11/03/23 06:00 11/03/23 06:00 11/03/23 06:00 11/02/23 21:41
Intake and Output
11/02/23 11/03/23 11/04/23
06:59 06:59 06:59
Intake Total 1761 / 2591 2645 / 2645
Output Total 650 / 650 1700 / 1700
Balance 1111 / 1941 945 / 945
SaO2 95
Physical Exam
General: Respiratory Distress (n)
HEENT: Normocephalic and Moist Mucous Membranes
Cardiovascular: Regular Rhythm, Murmur (n) and Peripheral Edema (n)
Respiratory: Clear, Non-Labored Respirations and Stridor (n)
GI: Soft, Non Distended and Non Tender
Neurology: Awake, AO x 3 and No Motor Deficits
Skin: Dry
Labs/Micro/Reports
Lab Data
11/03/23 03:45
11/03/23 03:45
Laboratory Results
11/02/23 11/02/23 11/02/23
10:21 14:27 17:30
PT 17.2 H 18.6 H Cancelled
INR 1.43 1.57 Cancelled
APTT 52.0 H > 200.0 H* Cancelled
11/02/23 11/02/23 11/02/23
18:03 20:30 23:30
PT Cancelled
INR Cancelled
APTT > 200 H* 71.7 H Cancelled
11/03/23 11/03/23
03:45 03:45
PT 15.8 H
INR 1.27
APTT Cancelled 117.7 H
[2023-11-03] MEDS: PROTONIX 20 MG PO (08:55)
[2023-11-03] MEDS: CRESTOR 5 MG PO (08:55)
[2023-11-03] MEDS: ELIQUIS 5 MG PO (08:55)
[2023-11-03] MEDS: FEOSOL 325 MG PO (08:55)
[2023-11-03] MEDS: LOW STRENGTH ASPIRIN 81 MG PO (08:55)
--- NOTE | 2023-11-03 09:16 | PTCARENOTE ---
PT received in bed, Maggie BROWN at bedside, orders obtained to remove reardon, OOB and D/C Heparin drip, drip stopped and left AC INT flushed, catheter removed, 450ml clear yellow urine, assisted x2 OOB to chair, NSR on monitor, no edema, +Doppler
pulses, DP/PT B/L LE, room air 93%, shallow clear BS, occasional cough, abdomen soft NT +BS, waiting for PT to void, Dr Lopez spoke with PT at bedside, PT to be D/C home after PT voids
[2023-11-03] MEDS: TYLENOL 650 MG PO (09:23)
--- NOTE | 2023-11-05 07:05 | W.DS.TRANS ---
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
-
Discharge Instructions:
Sleep Apnea Risk High
Discharge Diagnosis/Procedures Placement of Viabahn stent grafts into proximal
right lower extremity bypass for residual
thrombus exclusion (overlapping 6 mm x 15 cm
Viabahn; 6 mm x 5 cm Viabahn)
Penumbra suction thrombectomy of residual
thrombus in the proximal portion of the right
lower extremity bypass
ProGlide closure device left common femoral
artery access
Diet As tolerated
Activity No strenuous activity
Driving Restrictions No driving for 24 hours
Bathing Restrictions OK to Shower
Instructions:
Stand-Alone Forms: DC Instr - Vascular OR
Changes to Home Medications: Yes
Discharge Medications:
DC Medications w/original date entered in [employer]
Magnesium/Calcium/Zinc 1 tab PO Q48H Supplement 07/10/13
acetaminophen 500 mg tablet 1,000 mg PO Q6H PRN pain 05/01/22
apixaban 5 mg tablet (Eliquis) 5 mg PO BID Blood Clot Prevention/Tx 05/01/22
ferrous sulfate 325 mg (65 mg iron) tablet 325 mg PO DAILY Supplement 05/01/22
glucosamine sulfate 500 mg tablet (Glucosamine) 500 mg PO DAILY Supplement 05/01/22
lansoprazole 15 mg capsule,delayed release 15 mg PO DAILY Gastrointestinal Issue 05/01/22
metoprolol succinate 50 mg tablet,extended release 24 hr 50 mg PO Q48H Heart Failure 05/01/22
rosuvastatin 5 mg tablet 5 mg PO DAILY High Cholesterol 05/01/22
tamsulosin 0.4 mg capsule 0.4 mg PO HS Urinary Issue 05/01/22
aspirin 81 mg chewable tablet 81 mg PO DAILY Blood Clot Prevention/Tx 11/01/23
Home Medication Changes
Added:
hydromorphone 4 mg tablet 4 mg PO Q4HPRN PRN SEVERE PAIN #7 tabs 11/03/23
Pending Results: No
--- NOTE | 2023-11-05 07:06 | W.DCSUMMARY ---
Discharge Summary
Discharge Data
Date of Admission: 10/31/23
Date of Discharge: 11/03/23
-
Pending Results: No
Hospital Course
Attending: Keith
Consultants: Pulmonary medicine
Allergies: Oxycodone
Procedure with date: PROCEDURE DATE: 11/01/2023, Duplex assisted left common femoral artery cannulation. Aortogram and pelvic angiogram. Right lower extremity arteriogram with third order vessel catheterization of right peroneal artery via left common
femoral artery puncture. Initiation of catheter directed thrombolysis. By Dr. Hemant Parker. Date of Operation: November 02, 2023. Right lower extremity arteriogram, lysis check. Placement of Viabahn stent grafts into proximal right lower extremity
bypass for residual thrombus exclusion (overlapping 6 mm x 15 cm Viabahn; 6 mm x 5 cm Viabahn). Penumbra suction thrombectomy of residual thrombus in the proximal portion of the right lower extremity bypass. ProGlide closure device left common
femoral artery access. By Dr. Rodney Wallis III.
History of present illness: The patient is an 78 age -year-old male with multiple medical conditions including: Peripheral arterial disease, arterial fibrillation, hypertension, and hypercholesterolemia. Patient presented to [place] emergency
department on 10/31/23, reporting roughly 4 days of bilateral claudication pain right worse than left. Arterial duplex indicating occluded right lower extremity bypass, plan for urgent thrombectomy of right lower extremity.
Hospital Course: Briefly, the patient underwent urgent thrombectomy and lysis catheter placement to right lower extremity bypass without complications, following procedure he was transferred to intensive care unit per protocol for continued
hemodynamic monitoring. Assembler Erector consulted to aid in medical management from a critical care perspective. POD #1 (11/02/23) Patient with intact motor and sensory function of right lower extremity. Right foot remains cool. No evidence of bleeding
or hematoma at catheter insertion site. Patient returned to [facility] OR for lysis catheter removal and placement of Viabahn stent grafts into proximal right lower extremity bypass for residual thrombus exclusion, penumbra suction thrombectomy of
residual thrombus in the proximal portion of the right lower extremity bypass, and proGlide closure device left common femoral artery access. Patient initiated on heparin infusion postoperatively. POD#2 (11/03/23) Heparin fusion discontinued, p.o.
Eliquis initiated. Patient with clean dry and intact left groin puncture site, no evidence of hematoma. Right foot warm, Doppler signal at AT. Cleared for discharge to home.
Prescriptions and follow up appointment are included in the DC summary survey instrument operator note. All instructions were given to the patient in both written and verbal form and the patient expressed understanding.
Discharge Plan
-
Patient Disposition: Home (Routine Discharge)
Discharge Diagnosis/Procedures: Placement of Viabahn stent grafts into proximal right lower extremity bypass for residual thrombus exclusion (overlapping 6 mm x 15 cm Viabahn; 6 mm x 5 cm Viabahn)
Penumbra suction thrombectomy of residual thrombus in the proximal portion of the right lower extremity bypass
ProGlide closure device left common femoral artery access
Condition: Good
Diet: As tolerated
Activity: No strenuous activity
Driving Restrictions: No driving for 24 hours
Bathing Restrictions: OK to Shower
Stand Alone Forms: DC Instr - Vascular OR
Referrals:
Delfina Pierson PA-C [Specified Professional Personl] - 11/15/23 1:30 pm (Vascular follow up)
Evy Hoover DO [Family Provider] -
Prescriptions:
New
hydromorphone 4 mg Tablet
4 mg PO Q4HPRN PRN (Reason: SEVERE PAIN) Qty: 7 0RF
Continued
Magnesium/Calcium/Zinc
1 tab PO Q48H
metoprolol succinate 50 mg Tablet Extended Release 24 Hr
50 mg PO Q48H
glucosamine sulfate [Glucosamine] 500 mg Tablet
500 mg PO DAILY
acetaminophen 500 mg Tablet
1,000 mg PO Q6H PRN (Reason: pain)
tamsulosin 0.4 mg Capsule
0.4 mg PO HS
ferrous sulfate 325 mg (65 mg iron) Tablet
325 mg PO DAILY
lansoprazole 15 mg Capsule,Delayed Release(Dr/Ec)
15 mg PO DAILY
rosuvastatin 5 mg Tablet
5 mg PO DAILY
Eliquis 5 mg Tablet
5 mg PO BID
Hold Instructions: Resume on 05/20/22. Hold today, resume tomorrow am
aspirin 81 mg tablet,chewable
81 mg PO DAILY
Discharge Orders:
Discharge Patient (As Directed); Ordered 11/03/23
Ordered By: Delfina Lopez
Discharge Date and Time
Discharge Date/Time: 11/03/23 12:00
== END 2023-11-03 12:00 | disposition home or self-care (01) | DRG 271 ==
LOC: ICU 23:39
PROVIDERS: Nurse Practitioner; Nurse Practitioner Acute Care; Nurse Practitioner Gerontology; Surgery Vascular Surgery; ADMITTING PHYSICIAN Surgery Vascular Surgery; CONSULT PHYSICIAN Internal Medicine Pulmonary Disease; EMERGENCY PHYSICIAN Emergency Medicine; FAMILY PHYSICIAN Family Medicine
PROC: B41F1ZZ Fluoroscopy of Right Lower Extremity Arteries using Low Osmolar Contrast (ICD-10-PCS; 2023-11-01)
PROC: B4101ZZ Fluoroscopy of Abdominal Aorta using Low Osmolar Contrast (ICD-10-PCS; 2023-11-01)
PROC: 3E05317 Introduction of Other Thrombolytic into Peripheral Artery, Percutaneous Approach (ICD-10-PCS; 2023-11-01)
PROC: B41C1ZZ Fluoroscopy of Pelvic Arteries using Low Osmolar Contrast (ICD-10-PCS; 2023-11-01)
PROC: 04CK3ZZ Extirpation of Matter from Right Femoral Artery, Percutaneous Approach (ICD-10-PCS; 2023-11-02)
PROC: 047K3EZ Dilation of Right Femoral Artery with Two Intraluminal Devices, Percutaneous Approach (ICD-10-PCS; 2023-11-02)
DX: T82.898A Other specified complication of vascular prosthetic devices, implants and grafts, initial encounter (principal); I74.3 Embolism and thrombosis of arteries of the lower extremities; I70.201 Unspecified atherosclerosis of native arteries of extremities, right leg; I50.9 Heart failure, unspecified; I48.0 Paroxysmal atrial fibrillation; E78.00 Pure hypercholesterolemia, unspecified; N40.0 Benign prostatic hyperplasia without lower urinary tract symptoms; I70.209 Unspecified atherosclerosis of native arteries of extremities, unspecified extremity; K21.9 Gastro-esophageal reflux disease without esophagitis; Z66 Do not resuscitate; Z79.01 Long term (current) use of anticoagulants; Z87.891 Personal history of nicotine dependence; Z79.82 Long term (current) use of aspirin; Z85.51 Personal history of malignant neoplasm of bladder; Z85.528 Personal history of other malignant neoplasm of kidney; I11.0 Hypertensive heart disease with heart failure
CPT/HCPCS: 36247; 37211; 37213; 75625; 75710; 75716; 76937; 80048; 85014; 85018; 85027; 85049; 85384; 85610; 85730; 86803; 86850; 86900; 86901; 93922; 93925; 93970; 93971; 99284; C1725; C1769; C1874; C1887; C1894; J2997; Q9967

== ENCOUNTER → 2023-11-30 13:06 | Outpatient (REF) | payer OTHER, SELFPAY | LOC: RAD 13:06 | PROVIDERS: ATTENDING PHYSICIAN Physician Assistant; FAMILY PHYSICIAN Family Medicine | DX: I73.9 Peripheral vascular disease, unspecified (principal) | CPT/HCPCS: 93922; 93925 ==

== ENCOUNTER 2024-02-05 07:02 | Day surgery (SDC) | payer OTHER, SELFPAY | END 2024-02-05 09:16 | disposition home or self-care (01) | LOC: CATH 07:02 | PROVIDERS: ATTENDING PHYSICIAN Nuclear Medicine Nuclear Cardiology; FAMILY PHYSICIAN Family Medicine; OTHER PHYSICIAN Internal Medicine Interventional Cardiology | DX: I08.3 Combined rheumatic disorders of mitral, aortic and tricuspid valves (principal); I48.19 Other persistent atrial fibrillation; I12.9 Hypertensive chronic kidney disease with stage 1 through stage 4 chronic kidney disease, or unspecified chronic kidney disease; N18.30 Chronic kidney disease, stage 3 unspecified; E78.5 Hyperlipidemia, unspecified; I25.10 Atherosclerotic heart disease of native coronary artery without angina pectoris; I73.9 Peripheral vascular disease, unspecified; K21.9 Gastro-esophageal reflux disease without esophagitis; K58.9 Irritable bowel syndrome, unspecified; Z85.46 Personal history of malignant neoplasm of prostate; Z85.528 Personal history of other malignant neoplasm of kidney; Z90.5 Acquired absence of kidney; Z87.891 Personal history of nicotine dependence; Z79.01 Long term (current) use of anticoagulants; Z79.82 Long term (current) use of aspirin | CPT/HCPCS: 93312; 93320; 93325 ==

== ENCOUNTER 2024-02-06 09:34 | Day surgery (SDC) | payer OTHER, SELFPAY ==
[2024-01-21 11:45] VITALS: BMI 29.8
[2024-01-21 12:30] LABS: % Basophils 0.7 % (0-2); % Eosinophils 2.2 % (0-6); % Immature Granulocytes 0.4 % (0-0.5); % Monocytes 8.5 % (1.7-9.3); % Neutrophils 68.2 % (42.2-75.2); Absolute Basophils 0.1 10^3/uL (0-0.2); Absolute Eosinophils 0.2 10^3/uL (0-0.7); Absolute Lymphocytes 1.5 10^3/uL (1.2-3.4); Absolute Monocytes 0.6 10^3/uL (0.1-0.6); Hematocrit 41.3 % (39.0-52.0); Hemoglobin 14.2 g/dL (13.0-18.0); Mean Corp Hgb Conc. 34.4 g/dL (33.0-37.0); Mean Corpuscular Hgb 30.3 pg (27.0-31.0); Mean Corpuscular Volume 88.2 fL (80.0-94.0); Mean Platelet Volume 9.6 fL (7.4-10.4); Nucleated Red Blood Cells % 0 % (-); Platelet Count 233 10^3/uL (130-400); Red Blood Cell Count 4.68 10^6/uL (4.70-6.10); Red Cell Dist. Width 13.7 % (11.5-14.5); White Blood Cell Count 7.3 10^3/uL (4.8-10.8)
[2024-01-21 12:41] LABS: INR 1.22; PT 15.2 Sec (11.4-14.6)
[2024-01-21 13:02] LABS: ALT (SGPT) 26 U/L (0-50); AST (SGOT) 32 U/L (17-59); Albumin 4.3 g/dl (3.5-5.0); Alkaline Phosphatase 87 U/L (38-126); Blood Urea Nitrogen 29 mg/dl (9-20); Calcium 9.6 mg/dl (8.4-10.2); Carbon Dioxide 25 mmol/L (22-30); Chloride 100 mmol/L (98-107); Estimated Creatinine Clearance 50 ml/min; Glucose 112 mg/dl (70-99); Magnesium 2.1 mg/dl (1.6-2.3); Potassium 5.1 mmol/L (3.5-5.1); Sodium 134 mmol/L (135-145); Total Bilirubin 0.6 mg/dl (0.2-1.3); eGFR 56.58
--- NOTE | 2024-01-22 10:31 | HPS.HSE ---
Family Physician
-
Family Physician: Evy Hoover
Chief Complaint
-
Persistent atrial fibrillation.
History of Present Illness
The patient is a 78-year-old male presenting today for persistent atrial fibrillation. The patient reports symptoms of fatigue and dyspnea on exertion secondary to this diagnosis. He reportedly had three prior cardioversions with an early
return to atrial fibrillation each time. He is on current pharmacological therapy with Metoprolol Succinate. He is compliant with Eliquis for oral anticoagulation due to a [id number] of 5. Antiarrhythmic medical therapy has ultimately been avoided
due to his history of chronic kidney disease stage 3. He notes that his current symptoms associated with his arrhythmia are greatly interfering with his activities of daily living and are overall impacting his quality of life. He is interested in
pursuing pulmonary vein isolation for further arrhythmia management. He denies any current complaints today such as chest pain, shortness of breath at rest, palpitations, nausea, vomiting, diarrhea, lightheadedness, dizziness, cough, sore throat, or
fever.
Medical History
Past Medical History
Past Medical History: Reports Other
Additional Past Medical History:
1. Persistent atrial fibrillation, status post cardioversion x3; pharmacological therapy with Metoprolol Succinate, oral anticoagulation with Eliquis.
2. Hypertension.
3. Hyperlipidemia.
4. Non-obstructive coronary artery disease.
5. Nonischemic cardiomyopathy, reduced ejection fraction.
6. Peripheral vascular disease with occlusive thrombus, status post right lower extremity arteriogram and catheter-directed thrombolysis, 11/01/2023, and right lower extremity bypass with stent and thrombectomy 11/02/2023.
7. Probable obstructive sleep apnea.
8. Chronic kidney disease stage 3, secondary to solitary kidney.
9. GERD.
10. Colon polyps.
11. Hemorrhoids.
12. Irritable bowel syndrome.
13. Nephrolithiasis.
14. Prostate cancer, 2013, status post documented TURP and radiation.
15. 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
16. Mild hyponatremia.
16. History of tobacco abuse.
Past Surgical History: Reports Other
Additional Past Surgical History:
1. Cardioversion x3.
2. Transesophageal echocardiogram.
3. Right lower extremity arteriogram and catheter-directed thrombolysis.
4. Right lower extremity bypass with stent and thrombectomy.
5. Right lower extremity bypass.
6. Right lower extremity arteriogram.
7. Right lower extremity wound debridement and skin graft x3.
8. Left inguinal hernia repair.
9. TURP.
10. Appendectomy.
11. Right nephrectomy and right urethral excision.
12. Colonoscopy x6.
13. Endoscopy x6.
Social History
Tobacco: Former Smoker (He is a former less than one pack per day cigarette smoker who quit tobacco products altogether approximately five years ago.)
Alcohol: Occasional
Living: Other (The patient lives in a two-story home with his spouse. )
Family History
Family History: Not pertinent
Allergies / Home Medications
Allergy/Medication List:
Home medications:
1. Acetaminophen 1000 mg p.o. every six hours as needed.
2. Aspirin 81 mg p.o. daily.
3. Eliquis 5 mg p.o. twice a day.
4. Ferrous sulfate 325 mg p.o. every other day.
5. Furosemide 40 mg p.o. at bedtime.
6. Glucosamine 500 mg p.o. daily.
7. Lansoprazole 15 mg p.o. daily.
8. Magnesium, calcium, and zinc one tablet p.o. every other day.
9. Metoprolol Succinate 50 mg p.o. daily.
10. Rosuvastatin 10 mg p.o. daily.
11. Tamsulosin 0.4 mg p.o. at bedtime.
12. Valsartan 80 mg p.o. daily.
Allergies: Oxycodone.
Review of Systems
-
A 12 point ROS was completed and negative except as noted: Yes
Physical Exam
Vital Signs
VITAL SIGNS: Blood pressure 100/60, heart rate 85, respirations 18, pulse ox 99% on room air.
Height 5 feet, 7 inches, weight 86.2 kg, BMI 29.8.
Physical Exam
General: Well Developed, Well Nourished and No Apparent Distress
HEENT: NormoCephalic, Moist mucous membranes, Atraumatic and PERRLA
Respiratory: Clear
Cardiac: Irregular Rhythm
GI: Soft, Non Tender and Non Distended
Musculoskeletal: Normal Gait & Station
Skin: Warm and Dry
Neuro: AO x 3 and Nonfocal/grossly intact
Laboratory Results
-
01/21/24 11:53
01/21/24 11:53
Laboratory Results
PT 15.2 Sec (11.4-14.6) H 01/21/24 11:53
INR 1.22 01/21/24 11:53
Total Bilirubin 0.6 mg/dl (0.2-1.3) 01/21/24 11:53
AST 32 U/L (17-59) 01/21/24 11:53
ALT 26 U/L (0-50) 01/21/24 11:53
Alkaline Phosphatase 87 U/L (38-126) 01/21/24 11:53
Blood type O positive.
EKG 01/21/2024: Atrial fibrillation. Non-specific T wave abnormality. Prolonged QT.
Impression/Plan
-
IMPRESSION/PLAN:
1. Persistent atrial fibrillation: The patient is in need of pulmonary vein isolation for further arrhythmia management. This procedure will take place on 02/06/[address] Ariel Mcfarlane. The benefits and risks of the procedure have been explained
to the patient. The patient understands these risks and wishes to proceed. He will hold his Eliquis the night prior and morning of his procedure. He has been instructed to hold all his medications the morning of his pulmonary vein isolation.
[2024-02-06] VITALS (21 sets, daily range): BP systolic 101–134; BP diastolic 66–109; BMI 29.8
[2024-02-06 12:35] LABS: ACT-LR - POC 273 Seconds (116-155)
[2024-02-06 13:03] LABS: ACT-LR - POC 321 Seconds (116-155)
[2024-02-06 13:19] LABS: ACT-LR - POC 321 Seconds (116-155)
[2024-02-06 13:58] LABS: ACT-LR - POC 310 Seconds (116-155)
--- NOTE | 2024-02-06 14:01 | OR.RPT ---
Operative Report
Operative Report
PROCEDURE DATE: 02/06/2024
Preoperative diagnosis: Atrial fibrillation, difficulty with venous right-sided access, emergent intraprocedural consultation.
Postoperative diagnosis: Same
Procedure:
Emergent
1. Removal of existing sheath.
2. Duplex assisted right common femoral vein cannulation.
3. Pelvic venography.
4. Advancement of 14 Namibian delivery device for EP procedure.
Surgeon: Keith
Boilermaker Apprentice: None
Complications: None
Anesthesia: General
Indications for procedure:
Patient was undergoing EP procedure. I was called due to difficulty advancing sheaths and delivery devices via right groin venous access. I emergently came to the intraprocedural room to evaluate and scrubbed in.
Description of procedure:
Patient was already under general anesthesia, prepped and draped already. On anterior operating room there is a 16 Namibian sheath right groin venous access. A venogram that had been done looked somewhat atypical to me and that there was filling of
what appeared to be the external iliac vein, but this was medial to the sheath. Therefore I concerned that there was potential through and through arterial access. I could not definitively say that the. In addition nothing else suggested that.
Therefore I used a duplex (sterile duplex) in the room to assess. The sheath did not appear to be in the artery. But it did appear to run deep to the main common femoral vein. Was very difficult to assess. But it did look like venous access. I
pulled the sheath back a little bit. It did appear to be within the venous system. But I could not tell exactly how it was getting into the iliac venous system. Therefore at this point I withdrew the sheath completely and applied manual pressure.
Achieve full hemostasis. Next under direct duplex ultrasound guidance I was able to cannulate the common femoral vein with a micropuncture kit. I then advanced a micropuncture sheath and performed venography to confirm that I was in the external
iliac vein. This confirmed. Next I exchanged over a 0.035 inch wire for an 8 Namibian sheath. Next I placed wire access into the central IVC/right atrial. Next, I exchanged out the 8 Namibian sheath for a 14 Namibian dilator to confirm that this would
go up. At the level of the mid pelvis I difficulty advancing the dilator initially. I therefore withdrew the wire and performed venography through the dilator. This demonstrated widely patent vein and this two-dimensional fluoroscopy/angiography
imaging. No evidence of any extravasation. It was getting held up at the confluence of the internal iliac and external iliac veins. I therefore then attempted putting the wire back in. However the wire got coiled at this region too. This
suggested that there may have been a frozen valve in the vein. (Or alternatively a subtle or occult stenosis). I debated intravascular ultrasound at this point. However I was able to torque my wire and get it up all the way to the right atrium
again. Once I did this, I was able to pass the dilator through finally while torquing it. Since I was able to get that well past that area and freely up, I then exchanged the dilator out for the 14 Namibian delivery device (see Dr. Mcfarlane dictation
for the details of the device etc.). I was able to finally pass it through and all the way up towards the right atrium. At this point I turned the case back over to Dr. Mcfalrane and his team.
[2024-02-06 14:32] LABS: ACT-LR - POC 342 Seconds (116-155)
[2024-02-06 15:01] LABS: ACT-LR - POC > 397 Seconds (116-155)
[2024-02-06 15:07] LABS: ACT-LR - POC 285 Seconds (116-155)
[2024-02-06 15:30] LABS: ACT-LR - POC 339 Seconds (116-155)
[2024-02-06 15:49] LABS: ACT-LR - POC 358 Seconds (116-155)
[2024-02-06 16:10] LABS: ACT-LR - POC 144 Seconds (116-155)
--- NOTE | 2024-02-06 16:26 | ITS.CL.ABL ---
Addendum entered and electronically signed by Ariel Mcfarlane DO 02/06/24 19:35:
Addendum:
Of note, in mapping the LA, chamber size appeared larger and voltage low and patchy within the chamber. A consideration in patients with enlarged LA and low voltage LA with AF could be amyloidosis. Will defer to primary social and political studies professor regarding
further evaluation or review.
Original Note:
Air Grinder - Ablation
Ablation
Procedure Report:
Primary Glue Clamp Operator: Dr. Ivan Meyers MD
Procedure Date: 02/06/2024
Patient History:
Patient is a very pleasant 78-year-old male with a past medical history significant for mixed hyperlipidemia, hypertension, peripheral vascular disease with recent intervention by Dr. Wallis due to acute limb ischemia, single kidney status post
nephrectomy, CKD 3, prostate cancer, mild CAD, nonischemic cardiomyopathy, and symptomatic persistent atrial fibrillation.
See H&P for complete details.
Indication:
Symptomatic persistent atrial fibrillation
Early recurrence after cardioversion x 3
Arrhythmia Specific History:
Prior Medical Therapies for Rate and Rhythm Control:
X Beta-taylor
[ ] Calcium channel-taylor
[ ] Amiodarone
[ ] Dronederone
[ ] Sotalol
[ ] Flecainide
[ ] Dofetilide
[ ] Options limited by bradycardia
[ ] Options limited by comorbid renal disease
Prior Procedural Therapies for AF/AFL:
X Cardioversion
[ ] Pulmonary Vein Isolation
[ ] Posterior Wall Isolation
[ ] Additional lines (Specify)
[ ] Surgical Baum-MAZE or PVI (Specify)
Procedure Performed:
X AF ablation procedure (28913) -- includes LA/CS pacing, trans-septal, 3D mapping, + ICE
[ ] +IV drug (88434)
[ ] +Other Arrhythmia (83089)
X +Other AF Line/ablation (85642) -- Posterior Wall LA
Risks and expected recovery has been explained in detail. Alternative options have been explored, and in a shared-decision making fashion we have decided that this was the most appropriate procedure.
Method
NPO status confirmed. Grounding pad applied. Defibrillator pads applied. Continuous surface ECG, pulse oximetry, and blood pressure were monitored. Procedure was performed under general anesthesia, with anesthesia services.
Both groins were clipped, prepped with Chloraprep, and draped in sterile fashion. Time out was called. Local anesthesia administered with bupivacaine. The right and left femoral veins were accessed for catheter placement, using ultrasound guidance,
micro-puncture needle/wire, and modified seldinger technique. 3 sheaths were placed. The following catheters were used:
[ ] Tacticath SE (D/F Curve) ablation catheter
X Viewflex 9Fr ICE catheter
X Inquiry decapolar 6Fr diagnostic catheter
[ ] CRD Hex 6Fr
[ ] Arctic Front Advance Cryoballoon ([ ]28mm[ ]23mm)
[ ] Achieve Advance mapping catheter ([ ]15mm[ ]20mm)
X FlexCath Contour 10 Fr with PulseSelect PFA Catheter
X Advisor HD Grid Mapping Catheter, SE
[ ] Acuson AcuNav 8 Fr ICE catheter
[ ]Other: [ ]
Intracardiac ultrasound (ICE) was carefully advanced into the right atrium to guide sheath placement over a J-wire, catheter placement, guide trans-septal puncture, identify potential complications, identify anatomic structures and ensure proper
contact between ablation catheter and tissue.
Heparin was given prior to trans-septal puncture. Heparin was given to achieve and maintain a target ACT of 300-400 seconds throughout the procedure.
Initially, the 8 Fr short sheath in the right femoral vein was exchanged for a SL1 was advanced into the SVC prior to trans-septal over guidewire. However, there was inability to pass the BRK1 needle through the dilator at the groin site under
fluoroscopy. The BRK1 was removed and guidewire was replaced into the SVC via the SL1 freely without restriction. In an attempt to bypass the tortuosity, The SL1 was removed and the FlexCath Contour with FlexCath Cross was introduced at the right
femoral groin site over the wire however similar resistance was met under fluorscopic guidance. A short, 16 Fr sheath was introduced over the guidewire (which remained in the SVC). The sheath was advanced gently and resistance was once more met. A
non-selective venogram was performed and reviewed with vascular surgery, Dr. Hemant Parker. Total contrast used 45 cc. With his review, suggestion, assistance, Dr Parker removed the short sheath and manual pressure hemostasis was achieved. Please see "Alejandra"Keith's dictation for further details. The FlexCatCromoUp Contour system was advanced into the SVC over guidewire. The Trans-septal access was performed under ICE guidance. The trans-septal puncture was performed with FlexCath Cross transseptal system
through the steerable sheath. The wire was visualized as it entered the LSPV and system advanced under ICE guidance and fluoroscopy into the LA. The FlexCath Cross and wire were removed under negative pressure. LA pressure was measured and recorded.
ICE and 3D mapping was performed to identify relevant cardiac structures. A careful 3D map was created to assess for regions of low-voltage and abnormal electrogram signals using HD grid mapping catheter and PulseSelect catheter. Additional mapping
was performed as outlined below.
Prior to ablation, glycopyrrolate was provided. PulseSelect catheter was advanced over J-wire to the ostium of each vein. Pulmonary vein isolation was performed with ostial and antral lesions in a circumferential manner. Contact was visualized via
EAM, ICE, fluoroscopy, and EGM signals. Posterior wall isolation was performed by anchoring the J-wire within the pulmonary vein and placing the PulseSelect catheter in contact with the posterior wall as visualized by aforementioned methods.
Following completion of ablation lesions, sinus rhythm was restored with a 200J synchronized DCCV and a post-ablation voltage/activation map was performed in sinus rhythm. Entrance and exit block were confirmed for each vein and the posterior wall.
Catheter and sheath were removed from the left atrium and post-ablation intracardiac echo evaluation was consistent with pre-ablation with no changes and no pericardial effusion and there is no left atrial thrombus or left ventricle thrombus seen.
Electrophysiology study was performed. Hemostasis was obtained with figure of 8 stitch for right groin and manual pressure for both groin sites. Protamine was used for reversal.
Estimated Blood Loss
5-10 mL
Complications
None at completion of procedure
Fluoroscopy: 31 minutes; 110.96 mGy; DAP 15.2
Baseline Intervals:
Rhythm: AF
Post-Procedure Intervals:
ND: 244 ms
QRS: 81 ms
QT: 432 ms
QTc: 410 ms
AVWB: 390 ms
AVERP: 600/350 ms
Recommendations
- Bedrest with straight-leg precautions as ordered
- Admit with anticipate discharge home tomorrow after overnight observation
- Resume home medications as indicated
- Ok to resume anticoagulation tonight if patient and groin sites stable
- PPI daily for 30 days
- Plan for follow-up in office in 4-6 weeks
- Monitor renal function while in-patient
Ariel Mcfarlane DO
Clinical Cardiac Language Arts Teacher
cc: Ivan Meyers MD; Evy Hoover DO
--- NOTE | 2024-02-06 18:46 | PTCARENOTE ---
Pt received post PVI awake, alert and oriented. Remains on 2LNC, sat 97%. Bilateral groin dressings dry and intact. Sites soft. Denies any pain or discomfort.
--- NOTE | 2024-02-06 21:15 | PTCARENOTE ---
Assumed care of patient at change of shift. Tele monitor shows SR w/ occasional PACs. VSS, and sating 96% on 2L of O2. Denies any pain. Patient c/o 'floaters' in his right eye. Pt reports it started post procedural. Denies any dizziness, and states
'it seems like its fading'. Dr. Mcfarlane made aware and at beside. At which time patient reports it resolved and has no other complaints at this time. Neuro WNL, and pupils equal and reactive to light. Left groin site C/D/I, and DP pulses required
Doppler. Right groin figure 8 clipped at approximately 20:30 w/out any complications. Dry dressing applied. Right DP pulses weak. Right leg at baseline has neuropathy. Patient aware of POC, call cooper in reach.
[2024-02-06] MEDS: ELIQUIS 5 MG PO (22:30)
[2024-02-06] MEDS: FLOMAX 0.400000000000000022 MG PO (22:30)
[2024-02-07 03:41] VITALS: BP 118/73
[2024-02-07 04:13] LABS: Hematocrit 38.2 % (39.0-52.0); Hemoglobin 12.7 g/dL (13.0-18.0); Mean Corp Hgb Conc. 33.2 g/dL (33.0-37.0); Mean Corpuscular Volume 90.1 fL (80.0-94.0); Mean Platelet Volume 10.4 fL (7.4-10.4); Platelet Count 188 10^3/uL (130-400); Red Blood Cell Count 4.24 10^6/uL (4.70-6.10); White Blood Cell Count 10.8 10^3/uL (4.8-10.8)
[2024-02-07 04:36] LABS: Blood Urea Nitrogen 24 mg/dl (9-20); Calcium 8.5 mg/dl (8.4-10.2); Carbon Dioxide 20 mmol/L (22-30); Chloride 108 mmol/L (98-107); Estimated Creatinine Clearance 54 ml/min; Glucose 127 mg/dl (70-99); Potassium 4.9 mmol/L (3.5-5.1); Sodium 134 mmol/L (135-145); eGFR > 60.00
[2024-02-07 07:11] VITALS: BP 114/81
--- NOTE | 2024-02-07 07:31 | W.PN.UPDATE ---
Update Note
Progress Note Update
Patient without significant complaints today. No abdominal pain or groin pain. Abdomen is soft, nondistended, nontender. Right groin flat. No hematoma. Right foot warm with palpable DP pulse. Plan/ Per cardiology/EP. Will sign off. Please
call with questions.
[2024-02-07] MEDS: CRESTOR 10 MG PO (09:11)
[2024-02-07] MEDS: LOW STRENGTH ASPIRIN 81 MG PO (09:11)
[2024-02-07] MEDS: DIOVAN 80 MG PO (09:11)
[2024-02-07] MEDS: ELIQUIS 5 MG PO (09:11)
--- NOTE | 2024-02-07 09:11 | W.PN.CARDCBS ---
Addendum entered and electronically signed by Venkata Frank MD 02/07/24 14:44:
Patient seen, interviewed and examined by me.
Well-appearing, no acute distress
Regular rate and rhythm with normal S1 and S2, no S3 no S4. There is a grade 1/6 apical holosystolic murmur and no rubs. PMI is normally placed.
Lungs are clear to auscultation bilaterally without wheezes rales or rhonchi.
Abdomen soft nontender nondistended with normoactive bowel sounds
Extremities show trace pretibial edema bilaterally no clubbing or cyanosis. Bilateral groins with +2 pulses, no hematomas. +2 distal pulses bilaterally.
Neurologic exam is grossly nonfocal.
Remains in sinus rhythm and hemodynamically stable.
Agree with advanced practice professionals assessment and plan as noted below.
Stable for discharge to home today. I reviewed activity restriction with him in detail.
Original Note:
Today's Communication / Plan
-
post PVI/PFA, groins stable
d/c home today
Impression / Plan
-
PCP: Evy Hoover DO
PCY: Dewey Mcfarlane DO
78-year-old male with a past medical history significant for mixed hyperlipidemia, hypertension, peripheral vascular disease with recent intervention by Dr. Wallis due to acute limb ischemia, single kidney status post nephrectomy, CKD 3, prostate
cancer, mild CAD, nonischemic cardiomyopathy, and symptomatic persistent atrial fibrillation.
Impression:
Symptomatic persistent Afib
HTN
HLD
PVD RLE bypass/thrombectomy/stent 11/02/23
NICMP EF 35%
CKD3 solitary kidney
prostate cancer TURP/XRT 2012
IBS/GERD
Plan:
post PFA ablation c/b difficult access via R groin
appreciate vascular input
groins stable
tele SR with PAC's
continue OAC Eliquis
continue metporlol succinate 50 daily
PPI daily for 30 days, on lansoprazole
Activity restrictions reviewed
f/u DCA in 2 mo
Home today
Progress Note - Boots And Shoes Supervisor
Subjective
Date of Service: February 07, 2024
no cp, sob, denies groin pain
Objective
Labs:
02/07/24 03:33
02/07/24 03:33
Labs
Hgb 12.7 g/dL (13.0-18.0) L 02/07/24 03:33
Hct 38.2 % (39.0-52.0) L 02/07/24 03:33
Plt Count 188 10^3/uL (130-400) 02/07/24 03:33
PT 15.2 Sec (11.4-14.6) H 01/21/24 11:53
INR 1.22 01/21/24 11:53
Sodium 134 mmol/L (135-145) L 02/07/24 03:33
Potassium 4.9 mmol/L (3.5-5.1) 02/07/24 03:33
BUN 24 mg/dl (9-20) H 02/07/24 03:33
Creatinine 1.2 mg/dL (0.7-1.3) 02/07/24 03:33
Glucose 127 mg/dl (70-99) H 02/07/24 03:33
Vital Signs and I&O:
Vital Signs
Temp Pulse Resp BP Pulse Ox
97.8 F 79 18 114/81 96
02/07/24 07:10 02/07/24 09:00 02/07/24 07:10 02/07/24 07:11 02/07/24 09:04
Vital Signs
Temp Pulse Resp BP Pulse Ox
97.8 F 79 18 114/81 96
02/07/24 07:10 02/07/24 09:00 02/07/24 07:10 02/07/24 07:11 02/07/24 09:04
Intake & Output
02/05/24 02/06/24 02/07/24 02/08/24
06:59 06:59 06:59 06:59
Intake Total 720 / 720
Output Total 625 / 625
Balance 95 / 95
Physical Exam
Physical Exam
NAD< AOX3
S1, S2, RRR
CTAB, non labored
SNTND Bsx4
b/l groins soft, non tender, scant drainage on R groin
[2024-02-07] MEDS: PROTONIX 20 MG PO (09:12)
[2024-02-07] MEDS: TOPROL XL 50 MG PO (09:12)
--- NOTE | 2024-02-07 10:49 | PTCARENOTE ---
Pt seen by and India Maharaj NP. Telemetry and IV device removed. Discharge instructions reviewed with pt regarding activity and driving restrictions, wound care, medications and their possible side effects, reporting cares and concerns and
follow up appts. Very good understanding verbalized. Pt escorted out via wheelchair and discharged to home.
--- NOTE | 2024-02-07 11:32 | CM ---
CM following for DC planning needs.
Pt. DC'ed prior to CM meeting him.
Did review assessment from last admit; pt. resides in a 2 story home. He is functionally indep. at baseline w/ ADLs, mobility.
DC plan is for home, no needs.
--- NOTE | 2024-02-07 12:29 | W.DS.TRANS ---
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
-
Discharge Instructions:
Sleep Apnea Risk High
Discharge Diagnosis/Procedures Afib post ablation
Diet Low Cholesterol
Driving Restrictions No driving for 24 hours
Instructions:
Stand-Alone Forms: DC Instructions- Cath/EP Lab
Changes to Home Medications: No
Discharge Medications:
DC Medications w/original date entered in [facility]
Magnesium/Calcium/Zinc 1 tab PO Q48H Supplement 07/10/13
acetaminophen 500 mg tablet 1,000 mg PO Q6H PRN pain 05/01/22
apixaban 5 mg tablet (Eliquis) 5 mg PO BID Blood Clot Prevention/Tx 05/01/22
ferrous sulfate 325 mg (65 mg iron) tablet 325 mg PO .EVERY OTHER DAY Supplement 05/01/22
glucosamine sulfate 500 mg tablet (Glucosamine) 500 mg PO DAILY Supplement 05/01/22
lansoprazole 15 mg capsule,delayed release 15 mg PO DAILY Gastrointestinal Issue 05/01/22
metoprolol succinate 50 mg tablet,extended release 24 hr 50 mg PO DAILY Heart Failure 05/01/22
tamsulosin 0.4 mg capsule 0.4 mg PO HS Urinary Issue 05/01/22
aspirin 81 mg chewable tablet 81 mg PO DAILY Blood Clot Prevention/Tx 11/01/23
furosemide 40 mg tablet 40 mg PO HS 01/16/24
valsartan 80 mg tablet 80 mg PO DAILY 01/16/24
rosuvastatin 10 mg tablet 10 mg PO DAILY 01/21/24
Home Medication Changes
Pending Results: No
[2024-02-07 19:07] LABS: Hepatitis C Antibody Negative (Negative)
== END 2024-02-07 10:51 | disposition home or self-care (01) ==
LOC: CATH 09:34
PROVIDERS: Nuclear Medicine Nuclear Cardiology; Nurse Practitioner Adult Health; ATTENDING PHYSICIAN Internal Medicine Cardiovascular Disease; FAMILY PHYSICIAN Family Medicine
DX: I48.19 Other persistent atrial fibrillation (principal); Z79.01 Long term (current) use of anticoagulants; I25.10 Atherosclerotic heart disease of native coronary artery without angina pectoris; N18.30 Chronic kidney disease, stage 3 unspecified; I12.9 Hypertensive chronic kidney disease with stage 1 through stage 4 chronic kidney disease, or unspecified chronic kidney disease; R53.83 Other fatigue; R06.09 Other forms of dyspnea; K21.9 Gastro-esophageal reflux disease without esophagitis; Z87.19 Personal history of other diseases of the digestive system; K58.9 Irritable bowel syndrome, unspecified; Z90.79 Acquired absence of other genital organ(s); Z85.46 Personal history of malignant neoplasm of prostate; Z85.528 Personal history of other malignant neoplasm of kidney; Z87.891 Personal history of nicotine dependence; E87.1 Hypo-osmolality and hyponatremia; I73.9 Peripheral vascular disease, unspecified; I42.8 Other cardiomyopathies
CPT/HCPCS: 36011; C1732; C1894; C1769; C1893; C1733; C1766; C1759; 36415; 75820; 76937; 80048; 80053; 83735; 85025; 85027; 85347; 85610; 86803; 86850; 86900; 86901; 93005; 93656

== ENCOUNTER → 2024-03-12 10:04 | Outpatient (REF) | payer OTHER, SELFPAY | LOC: DHVS 10:04 | PROVIDERS: ATTENDING PHYSICIAN Surgery Vascular Surgery; FAMILY PHYSICIAN Family Medicine | DX: I77.9 Disorder of arteries and arterioles, unspecified (principal) | CPT/HCPCS: 93922; 93925 ==

== ENCOUNTER 2024-06-19 07:43 | Day surgery (SDC) | payer OTHER, SELFPAY ==
[2024-06-19] MEDS: ELIQUIS 5 MG PO (09:20)
--- NOTE | 2024-06-19 09:42 | ITS.CL.CARDI ---
Sales Promotion Manager - Cardioversion
Cardioversion
Procedure Report:
Procedure: CLAY-guided electrical cardioversion
Pre-operative diagnosis: Persistent atrial fibrillation
Post-operative diagnosis: Persistent atrial fibrillation status post DC cardioversion to sinus rhythm
Anesthesia: MAC
Attending Physician: Issa Burden MD
Procedure Description: The patient was brought to the electrophysiology laboratory in the fasting state. Informed consent was obtained from the patient prior to the start of the procedure. Adherence to anticoagulation was confirmed. Electrodes were
placed on the patient and connected to an external defibrillator. Monitoring of blood pressure, ECG tracings, and pulse oximetry was initiated. The pads were applied to the patient in the anterior and posterior positions. The patient was sedated by
the anesthesiologist. A CLAY (reported separately) was performed prior to the cardioversion. No left atrial or left atrial appendage thrombus was seen. After the CLAY probe was removed, a 200 joule biphasic synchronized shock was delivered to the
patient under MAC anesthesia. Sinus rhythm was successfully restored. The patient recovered uneventfully from MAC anesthesia. There were no immediate post-procedure complications. The patient left the lab in good condition. The attending physician
was present throughout the entire procedure.
Impression: Successful CLAY-guided direct current cardioversion with latter day of sinus rhythm after one 200 joule biphasic synchronized shock.
== END 2024-06-19 10:30 | disposition home or self-care (01) ==
LOC: CATH 07:43
PROVIDERS: ATTENDING PHYSICIAN Internal Medicine Cardiovascular Disease; FAMILY PHYSICIAN Family Medicine; OTHER PHYSICIAN Internal Medicine Cardiovascular Disease; OTHER PHYSICIAN Orthopaedic Surgery
DX: I48.19 Other persistent atrial fibrillation (principal); I10 Essential (primary) hypertension; E78.5 Hyperlipidemia, unspecified; Z79.01 Long term (current) use of anticoagulants; Z79.899 Other long term (current) drug therapy
CPT/HCPCS: 92960; 93005; 93312; 93320; 93325

== ENCOUNTER → 2024-09-15 09:25 | Outpatient (REF) | payer OTHER, SELFPAY | LOC: HWRCS 09:25 | PROVIDERS: ATTENDING PHYSICIAN Internal Medicine Cardiovascular Disease; FAMILY PHYSICIAN Family Medicine | DX: I42.9 Cardiomyopathy, unspecified (principal) | CPT/HCPCS: 93306 ==

== ENCOUNTER → 2024-10-23 08:23 | Outpatient (REF) | payer OTHER, SELFPAY | LOC: RAD 08:23 | PROVIDERS: ATTENDING PHYSICIAN Surgery Vascular Surgery; FAMILY PHYSICIAN Physician Assistant | DX: I77.9 Disorder of arteries and arterioles, unspecified (principal) | CPT/HCPCS: 93922; 93925 ==

== ENCOUNTER → 2025-05-04 11:20 | Outpatient (REF) | payer OTHER, SELFPAY | LOC: RAD 11:20 | PROVIDERS: ATTENDING PHYSICIAN Surgery Vascular Surgery; FAMILY PHYSICIAN Family Medicine | DX: I73.9 Peripheral vascular disease, unspecified (principal) | CPT/HCPCS: 93922; 93925 ==

== ENCOUNTER 2025-06-10 08:48 | Day surgery (SDC) | payer OTHER, SELFPAY ==
[2025-06-02 09:53] VITALS: BMI 30.3
[2025-06-10 09:43] VITALS: BP 138/81; BMI 30.2
--- NOTE | 2025-06-10 10:49 | ITS.CL.PACE ---
Building Construction Ironworker - Pacemaker Implant
Pacemaker Implant
Procedure Report:
Primary Care Doctor: Dr Evy Hoover
Primary Pot Room Tapper: Dr Ivan Meyers
Procedure Date: 06/10/2025
Name of procedure:
1. Placement of a dual-chamber pacemaker with left bundle area pacing lead for conduction system pacing
2. Subclavian venography
History:
1. Patient is a pleasant 80-year-old male with a past medical history significant for hypertension, hyperlipidemia, peripheral vascular disease, single kidney status post nephrectomy, CKD 3A, prostate cancer, symptomatic persistent atrial
fibrillation, coronary artery disease medically managed, mixed cardiomyopathy with recovered LVEF, symptomatic bradycardia with need for AV mik blocking for cardiomyopathy.
2. Please refer to H&P for complete history.
Indication:
Symptomatic bradycardia
Sick sinus syndrome
Chronotropic incompetence
Need for AV mik blocking agents in the setting of recovered cardiomyopathy
Methods:
After informed consent was obtained, the patient was brought to the EP laboratory in a postabsorptive, nonsedated state. Peripheral IV access was established. Prophylactic antibiotics were administered prior to incision. Continuous ECG, blood
pressure, and pulse oximetry were initiated. Cardioversion patch electrodes were placed on the patient's chest and back. A grounding patch was applied to the skin. Sedation was administered by anesthesia services.
In order to define the extrathoracic portion of the subclavian vein and exclude significant venous obstruction or anomalous anatomy, subclavian venography was performed prior to the procedure. Using the patient's right peripheral IV, contrast was
injected and images were recorded. The right subclavian vein and SVC were found to be widely patent.
The right chest was prepared and draped in a sterile fashion. A time-out was performed. Local anesthesia was injected in the subcutaneous tissue in the infraclavicular area. An incision was made medial to the deltopectoral groove. The
subcutaneous tissue was dissected the level of the prepectoral fascia. A subcutaneous pocket was created. Under fluoroscopic guidance and with the assistance of the images from the venogram, 2 separate venipunctures were made using micropuncture
and modified Seldinger technique. These were performed in the extrathoracic portion of the subclavian vein. Guidewires were passed and two peel-away sheaths were placed, and used to advance leads into the circulation.
Fluoroscopy was used to determine likely anatomic site for left bundle branch pacing. The TwitChattronic C315 sheath was used to deliver the Medtronic 3830 Selectsecure pacing lead with the helix exposed just exposed from the sheath tip during continuous
monitoring when pacemapping the septum during gentle clockwise rotation to obtain a paced QRS morphology of a W pattern in lead V1. Once the suspected optimal site was identified, lead deployment was performed with several rapid rotations as paced
QRS morphology was intermittently monitored until a paced QRS complex in lead V1 demonstrated development of an R wave (qR or rSR). Unipolar pacing impedance dropped by approximately 100-200 ohms suggesting it had reached the left ventricular
subendocardial. Stable VEgm injury current is present throughout lead position and at end of case. Final unipolar pacing impedance is 1040 Ohms. Unipolar pacing threshold is stable at 1.0 V @ 0.4 ms. The patient had pre-existing narrow QRS. Final
conduction system paced QRS complex duration is 97 ms, LVAT is 74 ms, and peak V5 -> peak V1 timing is 63 ms. The C315 sheath was slit under fluoroscopy ensuring lead position and stability.
Next, the right atrial lead was positioned in the right atrial appendage. Adequate sensing and pacing parameters were found, and no diaphragmatic stimulation was seen with high-output pacing. Both sheaths were split, and the leads were secured to
the fascia with Ethibond ties.
The pocket was flushed with antibiotic solution and hemostasis was assured. The generator was connected to the leads and placed inside the pocket. The device was sutured to the fascia. Antibiotic envelope was used. Floseal was applied. The wound
was closed with 3 running layers of absorbable suture, and steri-strips were applied. Dressing applied over steri-strips in standard fashion.
Following the procedure, the patient was taken to the recovery area in stable condition. A chest x-ray to be obtained post procedure as routine.
Lead parameters and device programming:
- RA Lead (Medtronic, Model 5076, # [id number]): Sensing 1.9 mV, Pacing threshold 0.5 V at 0.4 ms, Imp 456 ohm
- RV Lead (Medtronic, Model 3830, # [id number]): Sensing 8.5 mV, Pacing threshold 0.75 V at 0.4 ms, Imp 893 ohm (bipolar)
- Device: Medtronic, Model W1 DR 01 pacemaker (# [id number]), programmed [id number], mode switch on, low rate 60, upper tracking 130 ppm
Conclusions:
1. Successful placement of a dual-chamber pacemaker with conduction system pacing (LBBAP)
2. Subclavian venography
Recommendations:
- Admit
[facility]
- IV antibiotics while the patient is admitted.
- OK to resume home medications as indicated
- Resume OAC on 06/12/2025 AM
- Pressure dressing to be removed in AM, aquacell to remain until wound check
- Follow-up will be arranged in the office in 7-10 days post-discharge for incision check
Ariel Mcfarlane DO, FAC, [facility]
Clinical Cardiac Certification And Selection Specialist
cc: Dr Evy Hoover; Dr Ivan Meyers
[2025-06-10 13:07] VITALS: BP 132/71
--- NOTE | 2025-06-10 13:30 | PTCARENOTE ---
Received pt s/p pacemaker implantation. VSS, monitor showing AV paced rhythm. Right chest wall pressure dressing intact, no drainage noted. Right arm sling in place, pt instructed on activity restrictions. +CMS to right hand/fingers. Oriented to
room, at bedside, call cooper in reach.
--- NOTE | 2025-06-10 14:18 | CM ---
Reviewed chart. Met with Mr. Moarles to review discharge plans. He states prior to admission he resides with his spouse in a two story home with four steps to enter the home. He states he has a full flight of steps to get to bedroom/full
bathroom. He states he has a powder room on the first floor. He states prior to admission he was independent with ambulation and adls. He states he does not have any DME in the home. He states he has a prescription plan and uses [facility]. The discharge plan is to return home with his spouse when medically stable.
[2025-06-10 15:15] VITALS: BP 128/86
[2025-06-10] MEDS: TYLENOL 650 MG PO ×2 (15:19→19:10)
[2025-06-10] MEDS: ANCEF 5 IV (18:04)
[2025-06-10 18:45] VITALS: BP 134/84
--- NOTE | 2025-06-10 20:26 | PTCARENOTE ---
Assumed care of the patient @ 1900. Pt is AAOx3 A-paced on the monitor vss rt cw pacer site dressing c/d/i. Pt up in chair ambulates with sb assist. Call cooper within reach.
[2025-06-10 23:01] VITALS: BP 148/83
[2025-06-11 02:45] VITALS: BP 169/99
[2025-06-11] MEDS: ANCEF 5 IV (02:48)
[2025-06-11 03:26] LABS: Hematocrit 36.7 % (39.0-52.0); Hemoglobin 12.3 g/dL (13.0-18.0); Mean Corp Hgb Conc. 33.5 g/dL (33.0-37.0); Mean Corpuscular Volume 87.0 fL (80.0-94.0); Platelet Count 178 10^3/uL (130-400); Red Cell Dist. Width 14.4 % (11.5-14.5)
[2025-06-11 03:50] LABS: Blood Urea Nitrogen 22 mg/dl (9-20); Calcium 8.8 mg/dl (8.4-10.2); Carbon Dioxide 23 mmol/L (22-30); Chloride 107 mmol/L (98-107); Estimated Creatinine Clearance 57 ml/min; Glucose 106 mg/dl (70-99); Potassium 4.9 mmol/L (3.5-5.1); Sodium 137 mmol/L (135-145); eGFR > 60.00
[2025-06-11 05:55] VITALS: BP 152/91
[2025-06-11] MEDS: TYLENOL 650 MG PO (05:57)
[2025-06-11 06:58] VITALS: BP 169/90
--- NOTE | 2025-06-11 07:26 | W.PN.CARDCBS ---
Addendum entered and electronically signed by Shar Tovar MD 06/11/25 10:49:
Patient seen and examined
Agree with DIVING INSTRUCTOR note and assessment
Agree with DIVING INSTRUCTOR plan
Reviewed chest x-ray with stable lead positions
Atrial pacing with confed[place] goshute conduction on telemetry overnight
Exam:
As per DIVING INSTRUCTOR note
Right sided pacemaker site clean dry and intact without hematoma
Cor regular
JVP 6
Abdomen soft nontender positive bowel sounds
Alert and x 3
Nonfocal neurologically
Impression:
SSS, symptomatic bradycardia
post DC PPM 06/10/25
Symptomatic persistent Afib prior PVI 02/21
HTN
HLD
PVD RLE bypass/thrombectomy/stent 11/02/23
NICMP recovered EF
CAD medical management
CKD3 solitary kidney
prostate cancer TURP/XRT 2012
IBS/GERD
Anemia
Pre DM
Plan:
post pacemaker, feels good
site stable, pressure dressing removed
tele Apaced
CXR no PTX, leads in good position
Hold Eliquis, resume Sunday am
Continue Metoprolol and amiodarone
Activity restrictions reviewed
inc check 1 week
home today
Original Note:
Today's Communication / Plan
-
SSS post PPM
stable for d/c home
Impression / Plan
-
PCP: Evy Hoover, DO
PCY: Dewey Mcfarlane DO
80-year-old male with a past medical history significant for hypertension, hyperlipidemia, peripheral vascular disease, single kidney status post nephrectomy, CKD 3A, prostate cancer, symptomatic persistent atrial fibrillation, coronary artery
disease medically managed, mixed cardiomyopathy with recovered LVEF, symptomatic bradycardia with need for AV mik blocking for cardiomyopathy.
Impression:
SSS, symptomatic bradycardia
post DC PPM 06/10/25
Symptomatic persistent Afib prior PVI 02/21
HTN
HLD
PVD RLE bypass/thrombectomy/stent 11/02/23
NICMP recovered EF
CAD medical management
CKD3 solitary kidney
prostate cancer TURP/XRT 2012
IBS/GERD
Anemia
Pre DM
Plan:
post pacemaker, feels good
site stable, pressure dressing removed
tele Apaced
CXR no PTX, leads in good position
Hold Eliquis, resume Sunday am
Continue Metoprolol and amiodarone
Activity restrictions reviewed
inc check 1 week
home today
Progress Note - Answerer
Subjective
Date of Service: June 11, 2025
denies cp, sob, mild inc pain relief with tylenol
Objective
Labs:
06/11/25 02:56
06/11/25 02:56
Labs
Hgb 12.3 g/dL (13.0-18.0) L 06/11/25 02:56
Hct 36.7 % (39.0-52.0) L 06/11/25 02:56
Plt Count 178 10^3/uL (130-400) 06/11/25 02:56
Sodium 137 mmol/L (135-145) 06/11/25 02:56
Potassium 4.9 mmol/L (3.5-5.1) 06/11/25 02:56
BUN 22 mg/dl (9-20) H 06/11/25 02:56
Creatinine 1.1 mg/dL (0.7-1.3) 06/11/25 02:56
Glucose 106 mg/dl (70-99) H 06/11/25 02:56
Vital Signs and I&O:
Vital Signs
Temp Pulse Resp BP Pulse Ox
97.6 F 60 20 152/91 97
06/11/25 06:56 06/11/25 06:30 06/11/25 06:56 06/11/25 05:55 06/11/25 06:56
Vital Signs
Temp Pulse Resp BP Pulse Ox
97.6 F 60 20 152/91 97
06/11/25 06:56 06/11/25 06:30 06/11/25 06:56 06/11/25 05:55 06/11/25 06:56
Physical Exam
Physical Exam
NAD, AOX3
S1, S2, RRR
CTAB, non labored, no wheeze
SNTND bsx4
R CW site stable no HT, pressure dressing removed
[2025-06-11] MEDS: DIOVAN 40 MG PO (08:02)
[2025-06-11] MEDS: TOPROL XL 25 MG PO (08:04)
[2025-06-11] MEDS: PREVACID 15 MG PO (08:04)
[2025-06-11] MEDS: LOW STRENGTH ASPIRIN 81 MG PO (08:04)
[2025-06-11] MEDS: PACERONE 100 MG PO (08:04)
[2025-06-11] MEDS: CRESTOR 10 MG PO (08:04)
[2025-06-11 09:14] VITALS: BP 161/91
--- NOTE | 2025-06-11 09:26 | W.DS.TRANS ---
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
-
Discharge Instructions:
Discharge Diagnosis/Procedures Pacemaker implant
Diet Low Cholesterol
Driving Restrictions No driving for 1 week
Bathing Restrictions OK to Shower
Instructions:
Stand-Alone Forms: DC Inst - Implanted Device
Changes to Home Medications: No
Discharge Medications:
DC Medications w/original date entered in [facility]
Magnesium/Calcium/Zinc 1 tab PO Q48H Supplement 07/10/13
apixaban 5 mg tablet (Eliquis) 5 mg PO BID Blood Clot Prevention/Tx 05/01/22
Held on 06/11/25. Instructions: Resume on 06/12/25.
ferrous sulfate 325 mg (65 mg iron) tablet 325 mg PO .EVERY OTHER DAY Supplement 05/01/22
glucosamine sulfate 500 mg tablet (Glucosamine) 500 mg PO DAILY Supplement 05/01/22
lansoprazole 15 mg capsule,delayed release 15 mg PO DAILY Gastrointestinal Issue 05/01/22
aspirin 81 mg chewable tablet 81 mg PO DAILY Blood Clot Prevention/Tx 11/01/23
valsartan 80 mg tablet 80 mg PO DAILY Heart Disease/Condition 01/16/24
rosuvastatin 10 mg tablet 10 mg PO DAILY High Cholesterol 01/21/24
amiodarone 100 mg tablet 100 mg PO DAILY Heart Disease/Condition 05/29/25
furosemide 20 mg tablet 20 mg PO PRN PRN edema 05/29/25
metoprolol succinate 25 mg tablet,extended release 24 hr 25 mg PO DAILY Heart Disease/Condition 05/29/25
umeclidinium 62.5 mcg-vilanterol 25 mcg/actuation powdr for inhalation (Anoro Ellipta) 1 inh inhalation DAILY Lung/Breathing Issues 06/10/25
Home Medication Changes
Pending Results: No
--- NOTE | 2025-06-11 09:36 | CM ---
Reviewed chart. Met with Mr. Morales to review discharge plans. He states he feels well and maybe able to go home soon. Prior to admission he resides with his spouse in a two story home with four steps to enter the home. He has a full flight of
steps to get to bedroom/full bathroom. He has a powder room on the first floor. Prior to admission he was independent with ambulation and adls. He does not have any DME in the home. He has a prescription plan and uses [facility].
The discharge plan is to return home with his spouse when medically stable.
--- NOTE | 2025-06-11 10:42 | PTCARENOTE ---
Pt seen by and India Maharaj NP. Pt requested to take 40mgs valsartan only because he says 80mgs makes him historically dizzy, India Maharaj NP aware, pt encouraged to talk with his frozen yogurt maker at his next visit. Pt up walking in halls without
problem, telemetry shows atrial paced rhythm. Telemetry and IV device removed. Discharge instructions reviewed with pt and his regarding activity and driving restrictions, wound care, medications and their possible side effects, reporting cares
and concerns and follow up appt's. Excellent understanding verbalized. Pt escorted out via wheelchair and discharged to home.
== END 2025-06-11 10:35 | disposition home or self-care (01) ==
LOC: CATH 08:48
PROVIDERS: Nurse Practitioner; ATTENDING PHYSICIAN Internal Medicine Cardiovascular Disease; FAMILY PHYSICIAN Family Medicine
DX: I49.5 Sick sinus syndrome (principal); G47.33 Obstructive sleep apnea (adult) (pediatric); I48.19 Other persistent atrial fibrillation; I73.9 Peripheral vascular disease, unspecified; I13.0 Hypertensive heart and chronic kidney disease with heart failure and stage 1 through stage 4 chronic kidney disease, or unspecified chronic kidney disease; K58.9 Irritable bowel syndrome, unspecified; E78.5 Hyperlipidemia, unspecified; K21.9 Gastro-esophageal reflux disease without esophagitis; R73.03 Prediabetes; D64.9 Anemia, unspecified; Z79.899 Other long term (current) drug therapy; Z79.82 Long term (current) use of aspirin; Z79.01 Long term (current) use of anticoagulants; I25.10 Atherosclerotic heart disease of native coronary artery without angina pectoris; I42.8 Other cardiomyopathies; I45.89 Other specified conduction disorders; I50.32 Chronic diastolic (congestive) heart failure; N18.31 Chronic kidney disease, stage 3a; Z88.5 Allergy status to narcotic agent; Z90.5 Acquired absence of kidney; Z87.891 Personal history of nicotine dependence; Z92.3 Personal history of irradiation; Z85.46 Personal history of malignant neoplasm of prostate; Z85.51 Personal history of malignant neoplasm of bladder; N40.0 Benign prostatic hyperplasia without lower urinary tract symptoms
CPT/HCPCS: 33208; 71045; 80048; 85027; 93005; C1769; C1785; C1887; C1898; Q9967

== ENCOUNTER → 2025-09-14 11:14 | Outpatient (REF) | payer OTHER, SELFPAY ==
--- NOTE | 2025-09-14 12:26 | EEG.RPT ---
Electroencephalogram Report
Recording
Date of EE09/14/25
Type of EEG: Routine
Length of EEG recordin minutes
Done with Video Recording: Yes
Patient Status: Outpatient
Recording Conditions: Awake and Drowsy
Hyperventilation Performed: No
Photic Stimulation Performed: Yes
Report
LESS THAN 1 HOUR EEG INTERPRETATION:
Unremarkable EEG for age
CLINICAL CORRELATION:
A normal EEG does not rule out a diagnosis of epilepsy. If clinical suspicion for seizure persists, a prolonged recording may be warranted.
Clinical correlation is advised.
METHODS:
A 21 channel digitized electroencephalogram (EEG) was performed using the 10/20 international system of electrode placement and one-lead of ECG recorded. The [employer] quantitative EEG system was utilized.
ELECTROENCEPHALOGRAPHER IMPRESSION(S):
Quality of study
Good
Background
There was an unremarkable anterior-posterior voltage gradient of alpha frequency.
With eye opening the background activity changed to a low voltage mixture of frequencies.
There were no significant asymmetries of background activity noted.
Sleep
Drowsiness present
Photic Stimulation
No activation
ECG
Normal sinus rhythm
== END ==
LOC: EEG 11:14
PROVIDERS: ATTENDING PHYSICIAN Family Medicine
DX: R41.0 Disorientation, unspecified (principal)
CPT/HCPCS: 95816

== ENCOUNTER → 2025-09-17 11:20 | Outpatient (REF) | payer OTHER, SELFPAY | LOC: RAD 11:20 | PROVIDERS: ATTENDING PHYSICIAN Family Medicine | DX: R41.0 Disorientation, unspecified (principal) | CPT/HCPCS: 93880 ==